=== PATIENT | female | born 1995 | race Caucasian/White ===

== ENCOUNTER 2024-07-07 10:26 | Outpatient (AMB) | payer MEDICAID, SELFPAY ==
[2024-07-07 10:47] VITALS: BP 109/71; PULSE 98; RESP 18; TEMP 36.6; O2SAT 98; BMI 39.4
--- NOTE | 2024-07-07 10:47 | AMB.OBINITIA ---
Vital Signs 07/07/24 10:47 Height 1.5 m Height Method Stated Weight 88.451 kg Weight Measurement Method Standing Scale BMI 39.4 BP 109/71 Blood Pressure Source Automatic Cuff Blood Pressure Location Left Upper Arm Position Sitting Respiration 18 Pulse 98 Pulse Source Monitor Temp 97.8 F Temp Source Oral Pulse Oximetry (%) 98 Oxygen Delivery Method Room Air Allergies/Home Meds Allergies & Medications Allergies No Known Allergies Allergy (Verified 07/07/24 10:48) Medication Reconciliation aspirin 81 mg capsule,delayed release 81 mg PO QDAY 12/11/22 [History Confirmed 07/07/24] vits no.124-ferrous fum 27 mg iron-folic acid 800 mcg tablet ( Vitamin) 1 tab PO QDAY 12/11/22 [History Confirmed 07/07/24] ferrous sulfate 325 mg (65 mg iron) tablet 325 mg PO QDAY #60 tabs 12/14/22 [Rx Confirmed 07/07/24] Intake Visit Data Collection New Patient or Established: Established Patient (seen at [facility] within 3 years) Reason for Visit:: CARE Seen by Clinical Staff ONLY (RN/MA): No Office Clinician Required: No Do You Feel Safe at Home: Yes Authorities Contacted: N/A PCP or OBGYN visit in last 3 months: Yes Hx Now: Yes Are you currently on any form of Control: No Last menstrual period: 05/13/24 Pain Present Currently: No Pain Scale Used: Hinson-Esparza/Numerical Pain scale:: 0 Smoking Status Smoking Status: Never smoker Questionnaires Covid-19 Vaccine Questionnaire Has patient been vacinated for Covid-19 Have you been vacinated for Covid-19: Yes PHQ-9 PHQ-2 Over the last 2 weeks, how often have you been bothered by any of the following problems? 1. Little interest or pleasure in doing things: not at all 2. Feeling down, depressed, or hopeless: not at all Total score: 0 PHQ-9 3. Trouble falling or staying asleep, or sleeping too much: Not at all 4. Feeling tired or having little energy: Not at all 5. Poor appetite or overeating: Not at all 6. Feeling bad about yourself - or that you are a failure or have let yourself or your family down: Not at all 7. Trouble concentrating on things, such as reading the newspaper or watching television: Not at all 8. Moving or speaking so slowly that other people could have noticed? - Or the opposite - being so fidgety or restless that you have been moving around a lot more than usual: not at all 9. Thoughts that you would be better off or of hurting yourself in some way: Not at all Total score: 0 Source: Developed by Drs. Yury Corrales, Aimee Rowley, Satnam Pitts and colleagues, with an educational fili from [employer]. Depression screen completed yes Social History Living Situation History Marital Status: Lives With: Family Housing: House Tobacco History Smoking Status: Never smoker Second Hand Smoke Exposure: No Alcohol History Alcohol Intake: Never Domestic Abuse History Do You Feel Safe at Home: Yes History of Present Illness HPI Narrative 28-year-old 2 para 1 for first OB appointment. Patient's last. May 13, 2024. EDC February 18, 2025. Patient is sure about her dates. She reports her menses is every month x 5 days. Denies social habits. Denies any existing chronic illnesses. No surgeries. Her last was uneventful except for gestational diabetes. And she had a normal on that . Denies any SAB complaints. Denies any first trimester discomforts. 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 no bleeding. lmp 05/13/24. menses q month x 5 days. EDC 02/18/25. happy about . history of GDM last . was uncomplicated. PLAN: OB panel,1hr gtt and A1c, schedule sono for viability, continue PNV, SAB precaution. rtc 4 week Menstrual History Menstrual reliability: definite Flow: normal Menstrual regularity: regular Monthly: Yes Age at menarche: 11 On control pills at conception: No Associated symptoms (LMP): Reports nausea, fatigue and breast tenderness OB History : 2 Para: 1 # of Living Children: 1 Delivery History 1st : Child's name: LISA date: 12/12/22 sex: male Delivery type: vaginal Delivery complications: NONE History of depression before or after : No Infection History & Risk Evaluation History of STDs: none HIV risk evaluation: low risk Hepatitis B risk evaluation: low risk Patient or partner has history of Genital Herpes: No Genetic Screening & History Genetic Screening/Teratology Counseling - Includes patient, baby's father, or anyone in either family with: 1. Patient's age 35 years or older as of estimated date of delivery: No 2. Thalassemia (B[place]an, American, Mediterranean, or Background); MCV less than 80: No 3. Neural Tube Defect (Meningomyelocele, Spina Bifida, or Anencephaly): No 4. Congenital Heart Defect: No 5. Down Syndrome: No 6. Gary-Sachs (Ashkenazi Lutheran, Cajun, Maldivian Bryant): No 7. Karthik Disease (Ashkenazi Lutheran): No 8. Familial Dysautonomia (Ashkenazi Lutheran): No 9. Sickle Cell Disease or Trait (): No 10. Hemophilia or other blood disorders: No 11. Muscular Dystrophy: No 12. Cystic Fibrosis: No 13. [place]'s Chorea: No 14. Mental Retardation/Autism: No 15. Other inherited genetic or chromosomal disorder: No 16. Maternal Metabolic Disorder (EG,TYPE 1 Diabetes, PKU): No 17. Patient or baby's father had a child with defects not listed above: No 18. Recurrent loss or a stillbirth: No 19. Medications (including supplements, vitamins, herbs or otc drugs)/illicit/recreational drugs/alcohol since last menstrual period: No 20. Any other: No Infection History 1. Live with someone with TB or exposed to TB: No 2. Rash or viral illness since last menstrual period: No 3. Hepatitis B,C: No Other (see comments) Source: [employer] Review of Systems Review of Systems Systems Reviewed: All systems reviewed, normal except as documented Constitutional Constitutional: Reports fatigue Gastrointestinal Gastrointestinal: Reports nausea Endocrine Endocrine: Reports fatigue Exam General Limitations: no limitations General Appearance: alert, in no apparent distress, comfortable, cooperative, healthy appearing, well developed and well groomed Head Head exam: atraumatic, normocephalic and normal inspection Chest Chest inspection: Present normal inspection and symmetric chest wall rise Resp Respiratory exam: Present normal lung sounds bilaterally Card Cardiovascular exam: Present regular rate, normal rhythm and normal heart sounds Abdominal Abdominal exam: Present soft and normal bowel sounds Psych Psychiatric exam: Present normal affect and normal mood Office Procedures OB Clinic LOC & Office Proc's Nursing/Assessment Patient Status: Established Patient OB Clinic Nursing Assessment: Medication Reconciliation, Update PMH in EMR and Vital Signs OB Clinic Coordination of Care: Complex Care and Chronic Disease 1-5, Consent,records obtained, informed consent, Education Simp Pt/Fam, Lab and Imaging orders, Results/Orders obtained and Staff clarify orders Special Needs: Heart tones Miscellaneous Interventions: Blood/Urine Collection Established Patient Charge Established Patient Point Assignment: 165 Established Patient Point Charge: EP Level 5 (160-above) Assessment & Plan Diagnosis / Problem List (1) Encounter for supervision of normal in multigravida in first trimester: Status: Acute Plan Continue vitamins. Discussed SAB precautions. Comfort measures for first trimester discomforts. I reviewed GDM diet and encouraged patient to start diet now. OB panel with 1 hour GTT and A1c today. Schedule ultrasound for viability and return in 3 weeks OB check Additional Plan Follow Up: 3 Weeks (obc)
[2024-07-07 12:56] LABS: Bilirubin,Urine Clinitek Negative (Negative); Blood,Urine Clinitek Negative (Negative); Glucose, Urine Clinitek Negative (Negative); Ketones,Urine Clinitek 1+ (Negative); Leukocyte Esterase,Urine Clin Trace (Negative); Nitrite,Urine Clinitek Negative (Negative); Protein,Urine Clinitek Negative (Neg - Trace); Urobilinogen,Urine Clinitek 0.2 mg/dL (0.0-1.0)
== END 2024-07-07 11:22 | disposition home or self-care (01) ==
LOC: HODSOBC 10:26
PROVIDERS: PCP Family Medicine; Referring Provider Family Medicine; Supervising Provider Advanced Practice Midwife; Visit Provider Advanced Practice Midwife
DX: Z34.81 Encounter for supervision of other normal pregnancy, first trimester (principal); Z3A.01 Less than 8 weeks gestation of pregnancy; Z86.32 Personal history of gestational diabetes
CPT/HCPCS: 81001; 99215; G0463

== ENCOUNTER 2024-07-28 09:44 | Outpatient (AMB) | payer MEDICAID, SELFPAY ==
[2024-07-28 10:10] VITALS: BP 109/71; PULSE 88; RESP 16; TEMP 36.8; O2SAT 99; BMI 38.7
--- NOTE | 2024-07-28 10:10 | OBCLNT_ITS ---
Vital Signs 07/28/24 10:10 Height 1.5 m Height Method Stated Weight 86.863 kg Weight Measurement Method Standing Scale BMI 38.7 BP 109/71 Blood Pressure Source Automatic Cuff Blood Pressure Location Right Upper Arm Position Sitting Respiration 16 Pulse 88 Pulse Source Monitor Temp 98.2 F Temp Source Oral Pulse Oximetry (%) 99 Oxygen Delivery Method Room Air Allergies/Home Meds Allergies & Medications Allergies No Known Allergies Allergy (Verified 07/28/24 10:11) Medication Reconciliation aspirin 81 mg capsule,delayed release 81 mg PO QDAY 12/11/22 [History Confirmed 07/28/24] vits no.124-ferrous fum 27 mg iron-folic acid 800 mcg tablet ( Vitamin) 1 tab PO QDAY 12/11/22 [History Confirmed 07/28/24] ferrous sulfate 325 mg (65 mg iron) tablet 325 mg PO QDAY #60 tabs 12/14/22 [Rx Confirmed 07/28/24] Intake Visit Data Collection New Patient or Established: Established Patient (seen at [facility] within 3 years) Reason for Visit:: CARE Seen by Clinical Staff ONLY (RN/MA): No Certified Control Systems Technician Required: No Do You Feel Safe at Home: Yes Authorities Contacted: N/A PCP or OBGYN visit in last 3 months: Yes Hx Now: Yes Are you currently on any form of Control: No Pain Present Currently: No Pain Scale Used: Hinson-Esparza/Numerical Pain scale:: 0 Smoking Status Smoking Status: Never smoker Questionnaires Covid-19 Vaccine Questionnaire Has patient been vacinated for Covid-19 Have you been vacinated for Covid-19: Yes PHQ-9 PHQ-2 Over the last 2 weeks, how often have you been bothered by any of the following problems? 1. Little interest or pleasure in doing things: not at all 2. Feeling down, depressed, or hopeless: not at all Total score: 0 PHQ-9 3. Trouble falling or staying asleep, or sleeping too much: Not at all 4. Feeling tired or having little energy: Not at all 5. Poor appetite or overeating: Not at all 6. Feeling bad about yourself - or that you are a failure or have let yourself or your family down: Not at all 7. Trouble concentrating on things, such as reading the newspaper or watching television: Not at all 8. Moving or speaking so slowly that other people could have noticed? - Or the opposite - being so fidgety or restless that you have been moving around a lot more than usual: not at all 9. Thoughts that you would be better off or of hurting yourself in some way: Not at all Total score: 0 Source: Developed by Drs. Yury Corrales, Aimee Rowley, Satnam Pitts and colleagues, with an educational fili from [employer]. 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 no bleeding. lmp 05/13/24. menses q month x 5 days. EDC 02/18/25. happy about . history of GDM last . was uncomplicated. PLAN: OB panel,1hr gtt and A1c, schedule sono for viability, continue PNV, SAB precaution. rtc 4 week 07/28/24 -?-?-?-?-?-?-?-?-?-?-?-?- 10w 6d 86.863 kg 109/71 absent unknown 10 154 absent increased nausea, no SAB complaints sched anatomy sc an with MFM, NIPT and carrier screen today, sab precaution, increase fluid, RTC 4 wk obc NASRA Calculator Estimated Delivery Date Method Current WG Current Estimate 02/17/25 LMP (Certain) 10w 6d Notes Visit Date: 07/28/24 Last Updated by: Arabella Montes CNM O+,ABS-, RPR::NR, RUB IMM, HBSAG-,HIV-, HC-, GC/CT- Visit Date: 07/07/24 Last Updated by: Arabella Montes CNM 28 yo . LMP 05/13/24. EDC 02/18/25 Office Procedures OB Clinic LOC & Office Proc's Nursing/Assessment Patient Status: Established Patient OB Clinic Nursing Assessment: Medication Reconciliation, Update PMH in EMR and Vital Signs OB Clinic Coordination of Care: Complex Care and Chronic Disease 1-5, Consent,records obtained, informed consent, Education Simp Pt/Fam, Lab and Imaging orders, Results/Orders obtained and Staff clarify orders Special Needs: Heart tones Established Patient Charge Established Patient Point Assignment: 135 Established Patient Point Charge: EP Level 4 (120-155) Assessment & Plan Diagnosis / Problem List (1) Encounter for supervision of normal in multigravida in first trimester: Status: Acute Plan sched M NT and anatomy scan, NIPT and carrier screen today. discuss sab precaution, increase fluid. rtc 4 week Additional Plan Follow Up: 4 Weeks (obc)
== END 2024-07-28 11:18 | disposition home or self-care (01) ==
LOC: HODSOBC 09:44
PROVIDERS: Supervising Provider Obstetrics & Gynecology; Visit Provider Advanced Practice Midwife
DX: Z34.81 Encounter for supervision of other normal pregnancy, first trimester (principal); Z3A.10 10 weeks gestation of pregnancy
CPT/HCPCS: 99214; G0463

== ENCOUNTER 2024-08-30 10:19 | Outpatient (AMB) | payer MEDICAID, SELFPAY ==
[2024-08-30 10:34] VITALS: BP 111/73; PULSE 86; RESP 18; TEMP 36.3; O2SAT 98; BMI 37.8
--- NOTE | 2024-08-30 10:34 | OBCLNT_ITS ---
Vital Signs 08/30/24 10:34 Height 1.5 m Height Method Stated Weight 84.992 kg BMI 37.8 BP 111/73 Blood Pressure Source Automatic Cuff Blood Pressure Location Right Upper Arm Position Sitting Respiration 18 Pulse 86 Pulse Source Monitor Temp 97.3 F Temp Source Oral Pulse Oximetry (%) 98 Oxygen Delivery Method Room Air Allergies/Home Meds Allergies & Medications Allergies No Known Allergies Allergy (Verified 08/30/24 10:35) Medication Reconciliation aspirin 81 mg capsule,delayed release 81 mg PO QDAY 12/11/22 [History Confirmed 08/30/24] vits no.124-ferrous fum 27 mg iron-folic acid 800 mcg tablet ( Vitamin) 1 tab PO QDAY 12/11/22 [History Confirmed 08/30/24] ferrous sulfate 325 mg (65 mg iron) tablet 325 mg PO QDAY #60 tabs 12/14/22 [Rx Confirmed 08/30/24] Intake Visit Data Collection New Patient or Established: Established Patient (seen at [facility] within 3 years) Reason for Visit:: CARE Seen by Clinical Staff ONLY (RN/MA): No 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 1. Little interest or pleasure in doing things: not at all 2. Feeling down, depressed, or hopeless: not at all Total score: 0 PHQ-9 3. Trouble falling or staying asleep, or sleeping too much: Not at all 4. Feeling tired or having little energy: Not at all 5. Poor appetite or overeating: Not at all 6. Feeling bad about yourself - or that you are a failure or have let yourself or your family down: Not at all 7. Trouble concentrating on things, such as reading the newspaper or watching television: Not at all 8. Moving or speaking so slowly that other people could have noticed? - Or the opposite - being so fidgety or restless that you have been moving around a lot more than usual: not at all 9. Thoughts that you would be better off or of hurting yourself in some way: Not at all Total score: 0 Source: Developed by Drs. Yury Corrales, Aimee Rowley, Satnam Pitts and colleagues, with an educational fili from [employer]. 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 no bleeding. lmp 05/13/24. menses q month x 5 days. EDC 02/18/25. happy about . history of GDM last . was uncomplicated. PLAN: OB panel,1hr gtt and A1c, schedule sono for viability, continue PNV, SAB precaution. rtc 4 week 07/28/24 -?-?-?-?-?-?-?-?-?-?-?-?- 10w 6d 86.863 kg 109/71 absent unknown 10 154 absent increased nausea, no SAB complaints sched anatomy sc an with MFM, NIPT and carrier screen today, sab precaution, increase fluid, RTC 4 wk obc 08/30/24 -?-?-?-?-?-?-?-?-?-?-?-?- 15w 4d 84.992 kg 111/73 absent unknown 15 154 active light fm, denies SAB complaints, N/V improved AFP tod emily ferreira on 09/30/24, sab precaution, fluid. rtc 4 week NASRA Calculator Estimated Delivery Date Method Current WG Current Estimate 02/17/25 LMP (Certain) 15w 4d Notes Visit Date: 07/28/24 Last Updated by: Arabella Montes CNM O+,ABS-, RPR::NR, RUB IMM, HBSAG-,HIV-, HC-, GC/CT- Visit Date: 07/07/24 Last Updated by: Arabella Montes CNM 28 yo . LMP 05/13/24. EDC 02/18/25 Office Procedures OB Clinic LOC & Office Proc's Nursing/Assessment Patient Status: Established Patient OB Clinic Nursing Assessment: Medication Reconciliation, Update PMH in EMR and Vital Signs OB Clinic Coordination of Care: Complex Care and Chronic Disease 1-5, Consent,records obtained, informed consent, Education Simp Pt/Fam, Lab and Imaging orders, Results/Orders obtained and Staff clarify orders Special Needs: Heart tones Miscellaneous Interventions: Blood/Urine Collection Established Patient Charge Established Patient Point Assignment: 165 Established Patient Point Charge: EP Level 5 (160-above) Assessment & Plan Diagnosis / Problem List (1) Encounter for supervision of high risk in second trimester, antepartum: Status: Acute Plan AFP today. mfm appointment 09/30/24, discuss sab precaution, hydrate. discuss ER precaution Additional Plan Follow Up: 4 Weeks (obc)
== END 2024-08-30 11:21 | disposition home or self-care (01) ==
LOC: HODSOBC 10:19
PROVIDERS: Supervising Provider Advanced Practice Midwife; Visit Provider Advanced Practice Midwife
DX: O09.92 Supervision of high risk pregnancy, unspecified, second trimester (principal); Z3A.15 15 weeks gestation of pregnancy
CPT/HCPCS: 99215; G0463

== ENCOUNTER 2024-09-27 09:55 | Outpatient (AMB) | payer MEDICAID, SELFPAY ==
--- NOTE | 2024-09-27 10:04 | AMB.OBVISIT ---
Vital Signs 09/27/24 10:05 Height 1.5 m Height Method Stated Weight 85.049 kg Weight Measurement Method Standing Scale BMI 37.8 BP 112/72 Blood Pressure Source Automatic Cuff Blood Pressure Location Right Upper Arm Position Sitting Respiration 17 Pulse 88 Pulse Source Monitor Temp 98.1 F Temp Source Temporal Artery Scan Pulse Oximetry (%) 98 Oxygen Delivery Method Room Air Allergies/Home Meds Allergies & Medications Allergies No Known Allergies Allergy (Verified 09/27/24 10:06) Medication Reconciliation aspirin 81 mg capsule,delayed release 81 mg PO QDAY 12/11/22 [History Confirmed 09/27/24] vits no.124-ferrous fum 27 mg iron-folic acid 800 mcg tablet ( Vitamin) 1 tab PO QDAY 12/11/22 [History Confirmed 09/27/24] ferrous sulfate 325 mg (65 mg iron) tablet 325 mg PO QDAY #60 tabs 12/14/22 [Rx Confirmed 09/27/24] Intake Visit Data Collection New Patient or Established: Established Patient (seen at [facility] within 3 years) Reason for Visit:: OBC 19W4D Seen by Clinical Staff ONLY (RN/MA): No Machine Hoop 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 1. Little interest or pleasure in doing things: not at all 2. Feeling down, depressed, or hopeless: not at all Total score: 0 PHQ-9 3. Trouble falling or staying asleep, or sleeping too much: Not at all 4. Feeling tired or having little energy: Not at all 5. Poor appetite or overeating: Not at all 6. Feeling bad about yourself - or that you are a failure or have let yourself or your family down: Not at all 7. Trouble concentrating on things, such as reading the newspaper or watching television: Not at all 8. Moving or speaking so slowly that other people could have noticed? - Or the opposite - being so fidgety or restless that you have been moving around a lot more than usual: not at all 9. Thoughts that you would be better off or of hurting yourself in some way: Not at all Total score: 0 If you checked off any problems, how difficult have these problems made it for you to do your work, take care of things at home, or get along with other people?: not difficult at all Source: Developed by Drs. Yury Corrales, Aimee Rowley, Satnam Pitts and colleagues, with an educational fili from [employer]. 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 no bleeding. lmp 05/13/24. menses q month x 5 days. EDC 02/18/25. happy about . history of GDM last . was uncomplicated. PLAN: OB panel,1hr gtt and A1c, schedule sono for viability, continue PNV, SAB precaution. rtc 4 week 07/28/24 <del>?</del> 10w 6d 86.863 kg 109/71 absent unknown 10 154 absent increased nausea, no SAB complaints sched anatomy scan with MFM, NIPT and carrier screen today, sab precaution, increase fluid, RTC 4 wk obc 08/30/24 <del>?</del> 15w 4d 84.992 kg 111/73 absent unknown 15 154 active light fm, denies SAB complaints, N/V improved AFP today, mfm on 09/30/24, sab precaution, fluid. rtc 4 week 09/27/24 <del>?</del> 19w 4d 85.049 kg 112/72 absent unknown 19 145 active headache, BP normal. c/u flu s/s, fetus active. no VB,leaking,uc mfm on 09/30, discuss PTL precaution, increase fluid, in crease protein, comfort measure for URI. discuss danger s/s. rtc 4 week NASRA Calculator Estimated Delivery Date Method Current WG Current Estimate 02/17/25 LMP (Certain) 19w 4d Notes Visit Date: 09/27/24 Last Updated by: Arabella Montes CNM 09/27: AFP- Visit Date: 07/28/24 Last Updated by: Arabella Montes CNM O+,ABS-, RPR::NR, RUB IMM, HBSAG-,HIV-, HC-, GC/CT- Visit Date: 07/07/24 Last Updated by: Arabella Montes CNM 28 yo . LMP 05/13/24. EDC 02/18/25 Office Procedures OB Clinic LOC & Office Proc's Nursing/Assessment Patient Status: Established Patient OB Clinic Nursing Assessment: Medication Reconciliation, Update PMH in EMR and Vital Signs OB Clinic Coordination of Care: Complex Care and Chronic Disease 1-5, Consent,records obtained, informed consent, Education Simp Pt/Fam and Staff clarify orders Special Needs: Heart tones Established Patient Charge Established Patient Point Assignment: 115 Established Patient Point Charge: EP Level 3 (80-115) Assessment & Plan Diagnosis / Problem List (1) Encounter for supervision of high risk in second trimester, antepartum: Status: Acute Plan increase fluid, ptl precaution, mfm on 09/30. discuss comfort measure for URI/OTC. rtc 4 week Additional Plan Follow Up: 4 Weeks (obc)
[2024-09-27 10:05] VITALS: BP 112/72; PULSE 88; RESP 17; TEMP 36.7; O2SAT 98; BMI 37.8
== END 2024-09-27 10:44 | disposition home or self-care (01) ==
LOC: HODSOBC 09:55
PROVIDERS: Supervising Provider Advanced Practice Midwife; Visit Provider Advanced Practice Midwife
DX: O09.92 Supervision of high risk pregnancy, unspecified, second trimester (principal); Z3A.19 19 weeks gestation of pregnancy
CPT/HCPCS: 99213; G0463

== ENCOUNTER 2024-10-25 14:26 | Outpatient (AMB) | payer MEDICAID, SELFPAY ==
[2024-10-25 14:32] VITALS: BP 117/73; PULSE 91; RESP 18; TEMP 36.6; O2SAT 98; BMI 37.8
--- NOTE | 2024-10-25 14:32 | OBCLNT_ITS ---
Vital Signs 10/25/24 14:32 Height 1.5 m Height Method Stated Weight 85.275 kg Weight Measurement Method Standing Scale BMI 37.8 BP 117/73 Blood Pressure Source Automatic Cuff Blood Pressure Location Left Upper Arm Position Sitting Respiration 18 Pulse 91 Pulse Source Monitor Temp 97.8 F Temp Source Oral Pulse Oximetry (%) 98 Oxygen Delivery Method Room Air Allergies/Home Meds Allergies & Medications Allergies No Known Allergies Allergy (Verified 10/25/24 14:38) Medication Reconciliation aspirin 81 mg capsule,delayed release 81 mg PO QDAY 12/11/22 [History Confirmed 10/25/24] vits no.124-ferrous fum 27 mg iron-folic acid 800 mcg tablet ( Vitamin) 1 tab PO QDAY 12/11/22 [History Confirmed 10/25/24] ferrous sulfate 325 mg (65 mg iron) tablet 325 mg PO QDAY #60 tabs 12/14/22 [Rx Confirmed 10/25/24] Intake Visit Data Collection New Patient or Established: Established Patient (seen at [facility] [place] within 3 years) Reason for Visit:: CARE Seen by Clinical Staff ONLY (RN/MA): No 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 1. Little interest or pleasure in doing things: not at all 2. Feeling down, depressed, or hopeless: not at all Total score: 0 PHQ-9 3. Trouble falling or staying asleep, or sleeping too much: Not at all 4. Feeling tired or having little energy: Not at all 5. Poor appetite or overeating: Not at all 6. Feeling bad about yourself - or that you are a failure or have let yourself or your family down: Not at all 7. Trouble concentrating on things, such as reading the newspaper or watching television: Not at all 8. Moving or speaking so slowly that other people could have noticed? - Or the opposite - being so fidgety or restless that you have been moving around a lot more than usual: not at all 9. Thoughts that you would be better off or of hurting yourself in some way: Not at all Total score: 0 Source: Developed by Drs. Yury Corrales, Aimee Rowley, Satnam Pitts and colleagues, with an educational fili from [employer]. Depression screen completed yes Social History Living Situation History Lives With: Family Housing: House Tobacco History Smoking Status: Never smoker Second Hand Smoke Exposure: No Alcohol History Alcohol Intake: Never Domestic Abuse History Do You Feel Safe at Home: Yes [employer] WORKERS: Past Medical History Past Medical History: No Hx Renal Disease, No Hx Diabetes Mellitus Type 1 and No Hx Diabetes Mellitus Type 2 Care OB Visit Log OB Flowsheet Initial Weight: Not Recorded Date -?-?-?-?-?-?-?-?-?-?-?-?- EGA Weight BP Alb Glu CTX Pres Fundal ht FHR Mov Dilation Station Effacement Hx Notes Visit Note 07/07/24 -?-?-?-?-?-?-?-?-?-?-?-?- 7w 6d 88.451 kg 109/71 absent 8.0 28 yo for OBI, denies sab complaints, no complaint of N/v. no bleeding. lmp 05/13/24. menses q month x 5 days. EDC 02/18/25. happy about . history of GDM last . was uncomplicated. PLAN: OB panel,1hr gtt and A1c, schedule sono for viability, continue PNV, SAB precaution. rtc 4 week 07/28/24 -?-?-?-?-?-?-?-?-?-?-?-?- 10w 6d 86.863 kg 109/71 absent unknown 10 154 absent increased nausea, no SAB complaints sched anatomy sc an with MFM, NIPT and carrier screen today, sab precaution, increase fluid, RTC 4 wk obc 08/30/24 -?-?-?-?-?-?-?-?-?-?-?-?- 15w 4d 84.992 kg 111/73 absent unknown 15 154 active light fm, denies SAB complaints, N/V improved AFP tod ay, mfm on 09/30/24, sab precaution, fluid. rtc 4 week 09/27/24 -?-?-?-?-?-?-?-?-?-?-?-?- 19w 4d 85.049 kg 112/72 absent unknown 19 145 active headache, BP normal. c/u flu s/s, fetus active. no VB,leaking,uc mfm on 09/30, discuss PTL precaution, increase fluid, in crease protein, comfort measure for URI. discuss danger s/s. rtc 4 week 10/25/24 -?-?-?-?-?-?-?-?-?-?-?-?- 23w 4d 85.275 kg 117/73 absent unknown 23 145 active Fetus active. C omplains of vaginal itching a week ago but nothing now. Normal discharge is normal. Reports movement. Denies leaking, bleeding, contractions. Patient has a follow-up ultrasound November 23 with MFM. No other complaints Third trimester labs were ordered. Keep appointment with MFM on the first. Discussed labor precautions. Increase fluids. I discussed diet and diet. Return in 4 weeks OB check NASRA Calculator Estimated Delivery Date Method Current WG Current Estimate 02/17/25 LMP (Certain) 23w 4d Other Estimates 02/17/25 Ultrasound #1 23w 4d Notes Visit Date: 10/25/24 Last Updated by: Arabella Montes CNM NIPT/carier screen- Visit Date: 09/27/24 Last Updated by: Arabella Montes CNM 09/27: AFP- Visit Date: 07/28/24 Last Updated by: Arabella Montes CNM O+,ABS-, RPR::NR, RUB IMM, HBSAG-,HIV-, HC-, GC/CT- Visit Date: 07/07/24 Last Updated by: Arabella Montes CNM 28 yo . LMP 05/13/24. EDC 02/18/25 Office Procedures OB Clinic LOC & Office Proc's Nursing/Assessment Patient Status: Established Patient OB Clinic Nursing Assessment: Medication Reconciliation, Update PMH in EMR and Vital Signs OB Clinic Coordination of Care: Complex Care and Chronic Disease 1-5, Consent,records obtained, informed consent, Education Simp Pt/Fam, Lab and Imaging orders, Results/Orders obtained and Staff clarify orders Special Needs: Heart tones Miscellaneous Interventions: Culture Specimen Collection Established Patient Charge Established Patient Point Assignment: 150 Established Patient Point Charge: EP Level 4 (120-155) Assessment & Plan Diagnosis / Problem List (1) Encounter for supervision of high risk in second trimester, antepartum: Status: Acute Plan Discussed NIPT. Keep MFM appointment November 23. Third trimester labs ordered. Discussed diet and weight. Increase fluids. Return in 4 weeks OB check Additional Plan Follow Up: 4 Weeks (obc)
== END 2024-10-25 15:12 | disposition home or self-care (01) ==
LOC: HODSOBC 14:26
PROVIDERS: Supervising Provider Advanced Practice Midwife; Visit Provider Advanced Practice Midwife
DX: O09.92 Supervision of high risk pregnancy, unspecified, second trimester (principal); Z3A.23 23 weeks gestation of pregnancy
CPT/HCPCS: 99214; G0463

== ENCOUNTER 2024-11-22 09:49 | Outpatient (AMB) | payer MEDICAID, SELFPAY ==
[2024-11-22 09:57] VITALS: BP 107/71; PULSE 90; RESP 16; TEMP 36.2; O2SAT 98; BMI 38.1
--- NOTE | 2024-11-22 09:57 | AMB.OBVISIT ---
Vital Signs 11/22/24 09:57 Height 1.5 m Height Method Stated Weight 85.786 kg Weight Measurement Method Standing Scale BMI 38.1 BP 107/71 Blood Pressure Source Automatic Cuff Blood Pressure Location Left Upper Arm Position Sitting Respiration 16 Pulse 90 Pulse Source Monitor Temp 97.2 F Temp Source Oral Pulse Oximetry (%) 98 Oxygen Delivery Method Room Air Allergies/Home Meds Allergies & Medications Allergies No Known Allergies Allergy (Verified 11/22/24 09:59) Medication Reconciliation aspirin 81 mg capsule,delayed release 81 mg PO QDAY 12/11/22 [History Confirmed 11/22/24] vits no.124-ferrous fum 27 mg iron-folic acid 800 mcg tablet ( Vitamin) 1 tab PO QDAY 12/11/22 [History Confirmed 11/22/24] ferrous sulfate 325 mg (65 mg iron) tablet 325 mg PO QDAY #60 tabs 12/14/22 [Rx Confirmed 11/22/24] blood sugar diagnostic (Blood Glucose Test strips) #50 ea 11/22/24 [Rx] blood-glucose meter #1 ea 11/22/24 [Rx] lancets #100 ea 11/22/24 [Rx] Intake Visit Data Collection New Patient or Established: Established Patient (seen at [facility] within 3 years) Reason for Visit:: OBC Seen by Clinical Staff ONLY (RN/MA): No Pricing Specialist Required: No Do You Feel Safe at Home: Yes Authorities Contacted: N/A PCP or OBGYN visit in last 3 months: Yes Date of Last PCP or OBGYN visit: 10/25/24 Hx Now: Yes Are you currently on any form of Control: No Pain Present Currently: No Pain Scale Used: Hinson-Esparza/Numerical Pain scale:: 0 Smoking Status Smoking Status: Never smoker Questionnaires Covid-19 Vaccine Questionnaire Has patient been vacinated for Covid-19 Have you been vacinated for Covid-19: Yes PHQ-9 PHQ-2 Over the last 2 weeks, how often have you been bothered by any of the following problems? 1. Little interest or pleasure in doing things: not at all 2. Feeling down, depressed, or hopeless: not at all Total score: 0 PHQ-9 3. Trouble falling or staying asleep, or sleeping too much: Not at all 4. Feeling tired or having little energy: Not at all 5. Poor appetite or overeating: Not at all 6. Feeling bad about yourself - or that you are a failure or have let yourself or your family down: Not at all 7. Trouble concentrating on things, such as reading the newspaper or watching television: Not at all 8. Moving or speaking so slowly that other people could have noticed? - Or the opposite - being so fidgety or restless that you have been moving around a lot more than usual: not at all 9. Thoughts that you would be better off or of hurting yourself in some way: Not at all Total score: 0 If you checked off any problems, how difficult have these problems made it for you to do your work, take care of things at home, or get along with other people?: not difficult at all Source: Developed by Drs. Yury Corrales, Aimee Rowley, Satnam Pitts and colleagues, with an educational fili from [employer]. Depression screen completed yes Social History Living Situation History Marital Status: Single Lives With: Family Housing: House Tobacco History Smoking Status: Never smoker Second Hand Smoke Exposure: No Alcohol History Alcohol Intake: Never Domestic Abuse History Do You Feel Safe at Home: Yes [employer]SEM[employer]ER [employer]QUIPMENT: Past Medical History Past Medical History: No Hx Renal Disease, No Hx Diabetes Mellitus Type 1 and No Hx Diabetes Mellitus Type 2 Care OB Visit Log OB Flowsheet Initial Weight: Not Recorded Date <del>?</del> EGA Weight BP Alb Glu CTX Pres Fundal ht FHR Mov Dilation Station Effacement Hx Notes Visit Note 07/07/24 <del>?</del> 7w 6d 88.451 kg 109/71 absent 8.0 28 yo for OBI, denies sab complaints, no complaint of N/v. no bleeding. lmp 05/13/24. menses q month x 5 days. EDC 02/18/25. happy about . history of GDM last . was uncomplicated. PLAN: OB panel,1hr gtt and A1c, schedule sono for viability, continue PNV, SAB precaution. rtc 4 week 07/28/24 <del>?</del> 10w 6d 86.863 kg 109/71 absent unknown 10 154 absent increased nausea, no SAB complaints sched anatomy scan with MFM, NIPT and carrier screen today, sab precaution, increase fluid, RTC 4 wk obc 08/30/24 <del>?</del> 15w 4d 84.992 kg 111/73 absent unknown 15 154 active light fm, denies SAB complaints, N/V improved AFP today, mfm on 09/30/24, sab precaution, fluid. rtc 4 week 09/27/24 <del>?</del> 19w 4d 85.049 kg 112/72 absent unknown 19 145 active headache, BP normal. c/u flu s/s, fetus active. no VB,leaking,uc mfm on 09/30, discuss PTL precaution, increase fluid, in crease protein, comfort measure for URI. discuss danger s/s. rtc 4 week 10/25/24 <del>?</del> 23w 4d 85.275 kg 117/73 absent unknown 23 145 active Fetus active. Complains of vaginal itching a week ago but nothing now. Normal discharge is normal. Reports movement. Denies leaking, bleeding, contractions. Patient has a follow-up ultrasound November 23 with [facility]. No other complaints Third trimester labs were ordered. Keep appointment with [facility] on the first. Discussed labor precautions. Increase fluids. I discussed diet and diet. Return in 4 weeks OB check 11/22/24 <del>?</del> 27w 4d 85.786 kg 107/71 absent unknown 27 145 active Fetus active. Denies contractions, leaking, bleeding. Patient has an appointment with [facility] November 23 Keep appointment with [facility] November 23. Discussed GDM diet. Patient to test 4 times a day. I ordered meter and lancets and test strips. Antepartum testing at 32 weeks. Patient had GDM at her last so she remembers how to monitor and log sugars and remembers diet. Discussed labor precautions. Return in 3 weeks for Tdap and OB check NASRA Calculator Estimated Delivery Date Method Current WG Current Estimate 02/17/25 LMP (Certain) 27w 4d Other Estimates 02/17/25 Ultrasound #1 27w 4d Notes Visit Date: 11/22/24 Last Updated by: Arabella Montes CNM 11/22: 1 hr gtt: 199/GDM. rpr:nr, A1: 5.4 Visit Date: 10/25/24 Last Updated by: Arabella Montes CNM NIPT/carier screen- Visit Date: 09/27/24 Last Updated by: Arabella Montes CNM 8/5: AFP- Visit Date: 07/28/24 Last Updated by: Arabella Montes CNM O+,ABS-, RPR::NR, RUB IMM, HBSAG-,HIV-, HC-, GC/CT- Visit Date: 07/07/24 Last Updated by: Arabella Montes CNM 28 yo . LMP 05/13/24. EDC 02/18/25 Office Procedures OBC Clinic LOC & Office Proc's Nursing/Assessment Patient Status: Established Patient OB Clinic Nursing Assessment: Medication Reconciliation, Update PMH in EMR and Vital Signs OB Clinic Coordination of Care: Education Complex Pt/Fam, Consent,records obtained, informed consent, Lab and Imaging orders, Results/Orders obtained and Staff clarify orders Special Needs: Heart tones Established Patient Charge Established Patient Point Assignment: 115 Established Patient Point Charge: EP Level 3 (80-115) Assessment & Plan Diagnosis / Problem List (1) Diet controlled gestational diabetes mellitus (GDM) in second trimester: Status: Acute (2) Encounter for supervision of high risk in second trimester, antepartum: Status: Acute Plan Ordered glucometer, lancets, test strips to [facility]. Reviewed GDM diet with patient. Walk 40 minutes a day. Discussed testing 4 times a day. Discussed labor precautions. Return in 3 weeks Tdap and OB check Additional Plan Follow Up: 3 Weeks (obc)
== END 2024-11-22 10:26 | disposition home or self-care (01) ==
LOC: HODSOBC 09:49
PROVIDERS: Supervising Provider Advanced Practice Midwife; Visit Provider Advanced Practice Midwife
DX: O09.892 Supervision of other high risk pregnancies, second trimester (principal); O24.410 Gestational diabetes mellitus in pregnancy, diet controlled; Z3A.27 27 weeks gestation of pregnancy
CPT/HCPCS: 99213; G0463

== ENCOUNTER 2024-12-13 11:25 | Outpatient (AMB) | payer MEDICAID, SELFPAY ==
[2024-12-13 11:35] VITALS: BP 110/71; PULSE 85; RESP 18; TEMP 36.3; O2SAT 98; BMI 38.1
--- NOTE | 2024-12-13 11:35 | OBCLNT_ITS ---
Vital Signs 12/13/24 11:35 Height 1.5 m Height Method Stated Weight 85.899 kg Weight Measurement Method Standing Scale BMI 38.1 BP 110/71 Blood Pressure Source Automatic Cuff Blood Pressure Location Right Upper Arm Position Sitting Respiration 18 Pulse 85 Pulse Source Monitor Temp 97.3 F Temp Source Temporal Artery Scan Pulse Oximetry (%) 98 Oxygen Delivery Method Room Air Allergies/Home Meds Allergies & Medications Allergies No Known Allergies Allergy (Verified 12/13/24 11:39) Medication Reconciliation aspirin 81 mg capsule,delayed release 81 mg PO QDAY 12/11/22 [History Confirmed 12/13/24] vits no.124-ferrous fum 27 mg iron-folic acid 800 mcg tablet ( Vitamin) 1 tab PO QDAY 12/11/22 [History Confirmed 12/13/24] ferrous sulfate 325 mg (65 mg iron) tablet 325 mg PO QDAY #60 tabs 12/14/22 [Rx Confirmed 12/13/24] blood sugar diagnostic (Blood Glucose Test strips) #50 ea 11/22/24 [Rx Confirmed 12/13/24] blood-glucose meter #1 ea 11/22/24 [Rx Confirmed 12/13/24] lancets #100 ea 11/22/24 [Rx Confirmed 12/13/24] Intake Visit Data Collection New Patient or Established: Established Patient (seen at [facility] within 3 years) Reason for Visit:: OBC Seen by Clinical Staff ONLY (RN/MA): No Director Pharmaceutical Required: No Do You Feel Safe at Home: Yes Authorities Contacted: N/A PCP or OBGYN visit in last 3 months: No Hx Now: Yes Are you currently on any form of Control: No Pain Present Currently: No Pain Scale Used: Hinson-Esparza/Numerical Pain scale:: 0 Smoking Status Smoking Status: Never smoker Immunizations Flu Vaccine in the Last 12 Months: No Questionnaires Covid-19 Vaccine Questionnaire Has patient been vacinated for Covid-19 Have you been vacinated for Covid-19: No PHQ-9 PHQ-2 Over the last 2 weeks, how often have you been bothered by any of the following problems? 1. Little interest or pleasure in doing things: not at all 2. Feeling down, depressed, or hopeless: not at all Total score: 0 PHQ-9 3. Trouble falling or staying asleep, or sleeping too much: Not at all 4. Feeling tired or having little energy: Not at all 5. Poor appetite or overeating: Not at all 6. Feeling bad about yourself - or that you are a failure or have let yourself or your family down: Not at all 7. Trouble concentrating on things, such as reading the newspaper or watching television: Not at all 8. Moving or speaking so slowly that other people could have noticed? - Or the opposite - being so fidgety or restless that you have been moving around a lot more than usual: not at all 9. Thoughts that you would be better off or of hurting yourself in some way: Not at all Total score: 0 If you checked off any problems, how difficult have these problems made it for you to do your work, take care of things at home, or get along with other people?: not difficult at all Source: Developed by Drs. Yury Corrales, Aimee Rowley, Satnam Pitts and colleagues, with an educational flii from [employer]. 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 no bleeding. lmp 05/13/24. menses q month x 5 days. EDC 02/18/25. happy about . history of GDM last . was uncomplicated. PLAN: OB panel,1hr gtt and A1c, schedule sono for viability, continue PNV, SAB precaution. rtc 4 week 07/28/24 -?-?-?-?-?-?-?-?-?-?-?-?- 10w 6d 86.863 kg 109/71 absent unknown 10 154 absent increased nausea, no SAB complaints sched anatomy sc an with MFM, NIPT and carrier screen today, sab precaution, increase fluid, RTC 4 wk obc 08/30/24 -?-?-?-?-?-?-?-?-?-?-?-?- 15w 4d 84.992 kg 111/73 absent unknown 15 154 active light fm, denies SAB complaints, N/V improved AFP tod ay, mfm on 09/30/24, sab precaution, fluid. rtc 4 week 09/27/24 -?-?-?-?-?-?-?-?-?-?-?-?- 19w 4d 85.049 kg 112/72 absent unknown 19 145 active headache, BP normal. c/u flu s/s, fetus active. no VB,leaking,uc mfm on 09/30, discuss PTL precaution, increase fluid, in crease protein, comfort measure for URI. discuss danger s/s. rtc 4 week 10/25/24 -?-?-?-?-?-?-?-?-?-?-?-?- 23w 4d 85.275 kg 117/73 absent unknown 23 145 active Fetus active. Complains of vaginal itching a week ago but nothing now. Normal discharge is normal. Reports movement. Denies leaking, bleeding, contractions. Patient has a follow-up ultrasound November 23 with [facility]. No other complaints Third trimester labs were ordered. Keep appointment with [facility] on the first. Discussed labor precautions. Increase fluids. I discussed diet and diet. Return in 4 weeks OB check 11/22/24 -?-?-?-?-?-?-?-?-?-?-?-?- 27w 4d 85.786 kg 107/71 absent unknown 27 145 active Fetus active. Denies contractions, leaking, bleeding. Patient has an appointment with [facility] November 23 Keep appointment with [facility] November 23. Discussed GDM diet. Patient to test 4 times a day. I ordered meter and lancets and test strips. Antepartum testing at 32 weeks. Patient had GDM at her last so she remembers how to monitor and log sugars and remembers diet. Discussed labor precautions. Return in 3 weeks for Tdap and OB check 12/13/24 -?-?-?-?-?-?-?-?-?-?-?-?- 30w 4d 85.899 kg 110/71 absent unknown 30 145 active Fetus active. Denies leaking, bleeding, contractions. Patient reports good compliance with diet. She states her sugars are at goal at least 95% of the time. Fastings being under 90. tdap today. Carlos edule NST BPP to start at 32 weeks. Patient has a follow-up [facility] December 28. Discussed labor precautions. Continue to monitor sugars 4 times a day. And continue GDM diet. Return in 2 weeks OB NASRA Calculator Estimated Delivery Date Method Current WG Current Estimate 02/17/25 LMP (Certain) 30w 4d Other Estimates 02/17/25 Ultrasound #1 30w 4d Notes Visit Date: 11/22/24 Last Updated by: Arabella Montes CNM 11/22: 1 hr gtt: 199/GDM. rpr:nr, A1: 5.4 Visit Date: 10/25/24 Last Updated by: Arabella Montes CNM NIPT/carier screen- Visit Date: 09/27/24 Last Updated by: Arabella Montes CNM 09/27: AFP- Visit Date: 07/28/24 Last Updated by: Arabella Montes CNM O+,ABS-, RPR::NR, RUB IMM, HBSAG-,HIV-, HC-, GC/CT- Visit Date: 07/07/24 Last Updated by: Arabella Montes CNM 28 yo . LMP 05/13/24. EDC 02/18/25 Office Procedures OBC Clinic LOC & Office Proc's Nursing/Assessment Patient Status: Established Patient OB Clinic Nursing Assessment: Medication Reconciliation, Update PMH in EMR and Vital Signs OB Clinic Coordination of Care: Complex Care and Chronic Disease 1-5, Education Complex Pt/Fam, Consent,records obtained, informed consent, Lab and Imaging orders, Results/Orders obtained and Staff clarify orders Special Needs: Heart tones Established Patient Charge Established Patient Point Assignment: 140 Established Patient Point Charge: EP Level 4 (120-155) Injection/Vaccine Admin SQ Im Injection: Yes Immunizations diphth,pertus(acell),tetanus 2.5 Lf unit-8 mcg-5 Lf/0.5mL IM syringe Performing Provider: Arabella Montes CNM Performing Location: [facility] Administered by: Pati Palma MA on 12/13/24 12:09 Dose Route Admin Location Dispensed Lot Number Expiration Date Pack age NDC NDC Silk Spotter 0.5 mL IM Left Deltoid 0.5 mL [id number] 01/20/27 [id number] [employer] VIS Given Date VIS Provided VIS Publication Date 12/13/24 Single Vaccine 24 Eligibility Eligibility Date Funding Source Public Non-[facility] Assessment & Plan Diagnosis / Problem List (1) Encounter for supervision of high risk in second trimester, antepartum: Status: Acute (2) Diet controlled gestational diabetes mellitus (GDM) in second trimester: Status: Acute Plan Schedule weekly NST BPP. Discussed labor precautions and kick count. Patient will start NST at 32 weeks. Continue GDM diet. Walk 40 minutes a day. Will continue monitoring blood sugars 4 times a day. Return in 2 weeks OB check patient has a follow-up MFM appointment December Additional Plan Follow Up: 2 Weeks (obc)
== END 2024-12-13 12:00 | disposition home or self-care (01) ==
LOC: HODSOBC 11:25
PROVIDERS: Supervising Provider Advanced Practice Midwife; Visit Provider Advanced Practice Midwife
DX: O09.893 Supervision of other high risk pregnancies, third trimester (principal); O24.410 Gestational diabetes mellitus in pregnancy, diet controlled; Z3A.30 30 weeks gestation of pregnancy; Z23 Encounter for immunization
CPT/HCPCS: 90471; 90715; 96372; 99214; G0463

== ENCOUNTER 2024-12-27 12:53 | Outpatient (AMB) | payer MEDICAID, SELFPAY ==
[2024-12-27 12:55] VITALS: BP 106/67; PULSE 85; RESP 16; TEMP 36.6; O2SAT 98; BMI 38.3
--- NOTE | 2024-12-27 12:55 | OBCLNT_ITS ---
Vital Signs 12/27/24 12:55 Height 1.5 m Height Method Stated Weight 86.296 kg Weight Measurement Method Standing Scale BMI 38.3 BP 106/67 Blood Pressure Source Automatic Cuff Blood Pressure Location Left Upper Arm Position Sitting Respiration 16 Pulse 85 Pulse Source Monitor Temp 97.8 F Temp Source Oral Pulse Oximetry (%) 98 Oxygen Delivery Method Room Air Allergies/Home Meds Allergies & Medications Allergies No Known Allergies Allergy (Verified 12/27/24 13:02) Medication Reconciliation aspirin 81 mg capsule,delayed release 81 mg PO QDAY 12/11/22 [History Confirmed 12/27/24] vits no.124-ferrous fum 27 mg iron-folic acid 800 mcg tablet ( Vitamin) 1 tab PO QDAY 12/11/22 [History Confirmed 12/27/24] ferrous sulfate 325 mg (65 mg iron) tablet 325 mg PO QDAY #60 tabs 12/14/22 [Rx Confirmed 12/27/24] blood sugar diagnostic (Blood Glucose Test strips) #50 ea 11/22/24 [Rx Confirmed 12/27/24] blood-glucose meter #1 ea 11/22/24 [Rx Confirmed 12/27/24] lancets #100 ea 11/22/24 [Rx Confirmed 12/27/24] Intake Visit Data Collection New Patient or Established: Established Patient (seen at [facility] within 3 years) Reason for Visit:: care Seen by Clinical Staff ONLY (RN/MA): No Store Leader Required: No Do You Feel Safe at Home: Yes Authorities Contacted: N/A PCP or OBGYN visit in last 3 months: Yes Hx Now: Yes Are you currently on any form of Control: No Pain Present Currently: No Pain Scale Used: Hinson-Esparza/Numerical Pain scale:: 0 Smoking Status Smoking Status: Never smoker Immunizations Flu Vaccine in the Last 12 Months: Yes Flu Vaccine Exclusion Criteria: Already Received Questionnaires Covid-19 Vaccine Questionnaire Has patient been vacinated for Covid-19 Have you been vacinated for Covid-19: Yes PHQ-9 PHQ-2 Over the last 2 weeks, how often have you been bothered by any of the following problems? 1. Little interest or pleasure in doing things: not at all 2. Feeling down, depressed, or hopeless: not at all Total score: 0 PHQ-9 3. Trouble falling or staying asleep, or sleeping too much: Not at all 4. Feeling tired or having little energy: Not at all 5. Poor appetite or overeating: Not at all 6. Feeling bad about yourself - or that you are a failure or have let yourself or your family down: Not at all 7. Trouble concentrating on things, such as reading the newspaper or watching television: Not at all 8. Moving or speaking so slowly that other people could have noticed? - Or the opposite - being so fidgety or restless that you have been moving around a lot more than usual: not at all 9. Thoughts that you would be better off or of hurting yourself in some way: Not at all Total score: 0 Source: Developed by Drs. Yury Corrales, Aimee Rowley, Satnam Pitts and colleagues, with an educational fili from [employer]. Depression screen completed yes Social History Living Situation History Lives With: Family Housing: House Tobacco History Smoking Status: Never smoker Second Hand Smoke Exposure: No Alcohol History Alcohol Intake: Never Domestic Abuse History Do You Feel Safe at Home: Yes [employer] STE[employer]ER [employer]ENDER: Past Medical History Past Medical History: No Hx Renal Disease, No Hx Diabetes Mellitus Type 1 and No Hx Diabetes Mellitus Type 2 Care OB Visit Log OB Flowsheet Initial Weight: Not Recorded Date -?-?-?-?-?-?-?-?-?-?-?-?- EGA Weight BP Alb Glu CTX Pres Fundal ht FHR Mov Dilation Station Effaceme nt Hx Notes Visit Note 07/07/24 -?-?-?-?-?-?-?-?-?-?-?-?- 7w 6d 88.451 kg 109/71 absent 8.0 28 yo for OBI, denies sab complaints, no complaint of N/v. no bleeding. lmp 05/13/24. menses q month x 5 days. EDC 02/18/25. happy about . history of GDM last . was uncomplicated. PLAN: OB panel,1hr gtt and A1c, schedule sono for viability, continue PNV, SAB precaution. rtc 4 week 07/28/24 -?-?-?-?-?-?-?-?-?-?-?-?- 10w 6d 86.863 kg 109/71 absent unknown 10 154 absent increased nausea, no SAB complaints sched anatomy sc an with MFM, NIPT and carrier screen today, sab precaution, increase fluid, RTC 4 wk obc 08/30/24 -?-?-?-?-?-?-?-?-?-?-?-?- 15w 4d 84.992 kg 111/73 absent unknown 15 154 active light fm, denies SAB complaints, N/V improved AFP tod ay, mfm on 09/30/24, sab precaution, fluid. rtc 4 week 09/27/24 -?-?-?-?-?-?-?-?-?-?-?-?- 19w 4d 85.049 kg 112/72 absent unknown 19 145 active headache, BP normal. c/u flu s/s, fetus active. no VB,leaking,uc mfm on 09/30, discuss PTL precaution, increase fluid, in crease protein, comfort measure for URI. discuss danger s/s. rtc 4 week 10/25/24 -?-?-?-?-?-?-?-?-?-?-?-?- 23w 4d 85.275 kg 117/73 absent unknown 23 145 active Fetus active. Complains of vaginal itching a week ago but nothing now. Normal discharge is normal. Reports movement. Denies leaking, bleeding, contractions. Patient has a follow-up ultrasound November 23 with [facility]. No other complaints Third trimester labs were ordered. Keep appointment with [facility] on the first. Discussed labor precautions. Increase fluids. I discussed diet and diet. Return in 4 weeks OB check 11/22/24 -?-?-?-?-?-?-?-?-?-?-?-?- 27w 4d 85.786 kg 107/71 absent unknown 27 145 active Fetus active. Denies contractions, leaking, bleeding. Patient has an appointment with [facility] November 23 Keep appointment with [facility] November 23. Discussed GDM diet. Patient to test 4 times a day. I ordered meter and lancets and test strips. Antepartum testing at 32 weeks. Patient had GDM at her last so she remembers how to monitor and log sugars and remembers diet. Discussed labor precautions. Return in 3 weeks for Tdap and OB check 12/13/24 -?-?-?-?-?-?-?-?-?-?-?-?- 30w 4d 85.899 kg 110/71 absent unknown 30 145 active Fetus active. Denies leaking, bleeding, contractions. Patient reports good compliance with diet. She states her sugars are at goal at least 95% of the time. Fastings being under 90. tdap today. [facility] roshan NST BPP to start at 32 weeks. Patient has a follow-up MFM December 28. Discussed labor precautions. Continue to monitor sugars 4 times a day. And continue GDM diet. Return in 2 weeks OB 12/27/24 -?-?-?-?-?-?-?-?-?-?-?-?- 32w 4d 86.296 kg 106/67 absent unknown 32 146 active Fetus active. Denies leaking, bleeding, contractions. Patient has been compliant with GDM diet. And also monitoring 4 times a day her blood sugars. Sugars have been at goal 95% of the time. She will start weekly NST BPP today Follow-up with MFM for growth scan in a couple weeks. Continue to monitor blood sugars 4 times a day. Continue with regular activity throughout the day. And start NST BPP weekly. Kick count twice a day and return in 2 weeks OB check NASRA Calculator Estimated Delivery Date Method Current WG Current Estimate 02/17/25 LMP (Certain) 32w 4d Other Estimates 02/17/25 Ultrasound #1 32w 4d 02/17/25 Ultrasound #2 32w 4d 02/17/25 Manual 32w 4d final nasra: 01/24 08/17, EFW: 16% Notes Visit Date: 11/22/24 Last Updated by: Arabella Montes CNM 11/22: 1 hr gtt: 199/GDM. rpr:nr, A1: 5.4 Visit Date: 10/25/24 Last Updated by: Arabella Montes CNM NIPT/carier screen- Visit Date: 09/27/24 Last Updated by: Arabella Montes CNM 09/27: AFP- Visit Date: 07/28/24 Last Updated by: Arabella Montes CNM O+,ABS-, RPR::NR, RUB IMM, HBSAG-,HIV-, HC-, GC/CT- Visit Date: 07/07/24 Last Updated by: Arabella Montes CNM 28 yo . LMP 05/13/24. EDC 02/18/25 Office Procedures OBC Clinic LOC & Office Proc's Nursing/Assessment Patient Status: Established Patient OB Clinic Nursing Assessment: Medication Reconciliation, Update PMH in EMR and Vital Signs OB Clinic Coordination of Care: Complex Care and Chronic Disease 1-5, Consent,records obtained, informed consent, Education Simp Pt/Fam, 1 Ins Authorization, Lab and Imaging orders, Results/Orders obtained and Staff clarify orders Special Needs: Heart tones Established Patient Charge Established Patient Point Assignment: 150 Established Patient Point Charge: EP Level 4 (120-155) Assessment & Plan Diagnosis / Problem List (1) Encounter for supervision of high risk in third trimester, antepartum: Status: Acute Plan Continue to monitor glucoses 4 times a day. Continue GDM diet. Walk 40 minutes a day. 10 minutes after each meal. Continue weekly NST BPP and patient has a follow-up with MFM next month for growth. Return in 2 weeks OB check Additional Plan Follow Up: 2 Weeks (obc)
== END 2024-12-27 13:18 | disposition home or self-care (01) ==
LOC: HODSOBC 12:53
PROVIDERS: Supervising Provider Advanced Practice Midwife; Visit Provider Advanced Practice Midwife
DX: O09.893 Supervision of other high risk pregnancies, third trimester (principal); O24.410 Gestational diabetes mellitus in pregnancy, diet controlled; Z3A.32 32 weeks gestation of pregnancy
CPT/HCPCS: 99214; G0463

== ENCOUNTER 2025-01-11 13:03 | Outpatient (CLI) | payer MEDICAID, SELFPAY ==
[2025-01-11 13:08] VITALS: BP 129/75; PULSE 111; RESP 16; TEMP 36.7; O2SAT 98
[2025-01-11 13:14] VITALS: BP 129/75; PULSE 111; RESP 16; RESP 98; TEMP 36.7
== END 2025-01-12 06:16 | disposition home or self-care (01) ==
LOC: S4S1 13:05 → S4SX 13:06
PROVIDERS: Referring Provider Obstetrics & Gynecology; Visit Provider Obstetrics & Gynecology
DX: Z34.90 Encounter for supervision of normal pregnancy, unspecified, unspecified trimester (principal); Z3A.00 Weeks of gestation of pregnancy not specified
CPT/HCPCS: 59025

== ENCOUNTER 2025-01-14 12:40 | Outpatient (CLI) | payer MEDICAID, SELFPAY ==
[2025-01-14] VITALS (8 sets, daily range): BP systolic 114; BP diastolic 65; PULSE 86–99; RESP 20–100; TEMP 36.7; O2SAT 97–100; BMI 39.1
== END 2025-01-14 13:28 | disposition home or self-care (01) ==
LOC: S4SX 13:20 → CNST 13:32
PROVIDERS: Referring Provider Obstetrics & Gynecology; Visit Provider Obstetrics & Gynecology
DX: Z34.83 Encounter for supervision of other normal pregnancy, third trimester (principal); Z36.9 Encounter for antenatal screening, unspecified; Z3A.35 35 weeks gestation of pregnancy
CPT/HCPCS: 59025

== ENCOUNTER 2025-01-17 13:04 | Outpatient (AMB) | payer MEDICAID, SELFPAY ==
[2025-01-17 13:13] VITALS: BP 117/77; PULSE 98; RESP 18; TEMP 36.2; O2SAT 972
--- NOTE | 2025-01-17 13:13 | OBCLNT_ITS ---
Vital Signs 01/17/25 13:13 Weight 86.863 kg Weight Measurement Method Standing Scale BP 117/77 Blood Pressure Source Automatic Cuff Blood Pressure Location Left Upper Arm Position Sitting Respiration 18 Pulse 98 Pulse Source Monitor Temp 97.2 F Temp Source Oral Pulse Oximetry (%) 972 H Oxygen Delivery Method Room Air Allergies/Home Meds Allergies & Medications Allergies No Known Allergies Allergy (Verified 01/17/25 13:14) Medication Reconciliation vits no.124-ferrous fum 27 mg iron-folic acid 800 mcg tablet ( Vitamin) 1 tab PO QDAY 12/11/22 [History Confirmed 01/17/25] blood sugar diagnostic (Blood Glucose Test strips) #50 ea 11/22/24 [Rx Confirmed 01/17/25] blood-glucose meter #1 ea 11/22/24 [Rx Confirmed 01/17/25] lancets #100 ea 11/22/24 [Rx Confirmed 01/17/25] Immunizations Immunizations Flu Vaccine in the Last 12 Months: No Flu Vaccine Exclusion Criteria: No Exclusion Criteria Care OB Visit Log OB Flowsheet Initial Weight: Not Recorded Date -?-?-?-?-?-?-?-?-?-?-?-?- EGA Weight BP Alb Glu CTX Pres Fundal ht FHR Mov Dilation Station Effacem ent Hx Notes Visit Note 07/07/24 -?-?-?-?-?-?-?-?-?-?-?-?- 7w 6d 88.451 kg 109/71 absent 8.0 28 yo for OBI, denies sab complaints, no complaint of N/v. no bleeding. lmp 05/13/24. menses q month x 5 days. EDC 02/18/25. happy about . history of GDM last . was uncomplicated. PLAN: OB panel,1hr gtt and A1c, schedule sono for viability, continue PNV, SAB precaution. rtc 4 week 07/28/24 -?-?-?-?-?-?-?-?-?-?-?-?- 10w 6d 86.863 kg 109/71 absent unknown 10 154 absent increased nausea, no SAB complaints sched anatomy sc an with MFM, NIPT and carrier screen today, sab precaution, increase fluid, RTC 4 wk obc 08/30/24 -?-?-?-?-?-?-?-?-?-?-?-?- 15w 4d 84.992 kg 111/73 absent unknown 15 154 active light fm, denies SAB complaints, N/V improved AFP tod hanna, mfm on 09/30/24, sab precaution, fluid. rtc 4 week 09/27/24 -?-?-?-?-?-?-?-?-?-?-?-?- 19w 4d 85.049 kg 112/72 absent unknown 19 145 active headache, BP normal. c/u flu s/s, fetus active. no VB,leaking,uc mfm on 09/30, discuss PTL precaution, increase fluid, in crease protein, comfort measure for URI. discuss danger s/s. rtc 4 week 10/25/24 -?-?-?-?-?-?-?-?-?-?-?-?- 23w 4d 85.275 kg 117/73 absent unknown 23 145 active Fetus active. Complains of vaginal itching a week ago but nothing now. Normal discharge is normal. Reports movement. Denies leaking, bleeding, contractions. Patient has a follow-up ultrasound November 23 with [facility]. No other complaints Third trimester labs were ordered. Keep appointment with [facility] on the first. Discussed labor precautions. Increase fluids. I discussed diet and diet. Return in 4 weeks OB check 11/22/24 -?-?-?-?-?-?-?-?-?-?-?-?- 27w 4d 85.786 kg 107/71 absent unknown 27 145 active Fetus active. Denies contractions, leaking, bleeding. Patient has an appointment with [facility] November 23 Keep appointment with [facility] November 23. Discussed GDM diet. Patient to test 4 times a day. I ordered meter and lancets and test strips. Antepartum testing at 32 weeks. Patient had GDM at her last so she remembers how to monitor and log sugars and remembers diet. Discussed labor precautions. Return in 3 weeks for Tdap and OB check 12/13/24 -?-?-?-?-?-?-?-?-?-?-?-?- 30w 4d 85.899 kg 110/71 absent unknown 30 145 active Fetus active. Denies leaking, bleeding, contractions. Patient reports good compliance with diet. She states her sugars are at goal at least 95% of the time. Fastings being under 90. tdap today. Carlos islas NST BPP to start at 32 weeks. Patient has a follow-up MFM December 28. Discussed labor precautions. Continue to monitor sugars 4 times a day. And continue GDM diet. Return in 2 weeks OB 12/27/24 -?-?-?-?-?-?-?-?-?-?-?-?- 32w 4d 86.296 kg 106/67 absent unknown 32 146 active Fetus active. Denies leaking, bleeding, contractions. Patient has been compliant with GDM diet. And also monitoring 4 times a day her blood sugars. Sugars have been at goal 95% of the time. She will start weekly NST BPP today Follow-up with MFM for growth scan in a couple weeks. Continue to monitor blood sugars 4 times a day. Continue with regular activity throughout the day. And start NST BPP weekly. Kick count twice a day and return in 2 weeks OB check 01/17/25 -?-?-?-?-?-?-?-?-?-?-?-?- 35w 4d 86.863 kg 117/77 absent cephalic 35 146 active Reports movement. Denies leaking leaking today denies bleeding or contractions. Patient had gone into labor and delivery on the weekend for possible ruptured membranes. No leaking now. Reports blood sugars are within goal 95% of the time. Patient is walking. Compliant with weekly NST BPP. Patient had an JOHNNY of December 11 since then her JOHNNY's have been between 7 and 10 Reports movement. Den ies leaking leaking today denies bleeding or contractions. Patient had gone into labor and delivery on the weekend for possible ruptured membranes. No leaking now. Reports blood sugars are within goal 95% of the time. Patient is walking. Compliant with weekly NST BPP. Patient had an JOHNNY of December 11 since then her JOHNNY's have been between 7 and 10. The patient is concerned that with her last she had a vacuum delivery for distress. She sustained a midline laceration. And also a right labial tear that extended into the vaginal floor. Patient did not have 1/4 degree. Patient has questions that she should have a primary based on that tear. She was told by a nurse that if she had 1/4 degree she should have a C6. The patient told me she would like to have a vaginal I addressed all concerns. We discussed the details of her . Patient relayed to me that it was a vacuum delivery after pushing for 20 minutes. And that she did not tear through the rectum. And that she would like to have a vaginal . There is no or in the documentation that patient had 1/4 degree. She did have a mediolateral laceration and a right labial tear. I did GBS today. I sent patient to labor and delivery for her NST BPP. She will continue to monitor sugars 4 times a day. And continue to do kick count twice a day. To walk 40 minutes a day. Patient will see [facility] to discuss options. And induction was scheduled for February 10. Return in a week OB check NASRA Calculator Estimated Delivery Date Method Current WG Current Estimate 02/17/25 LMP (Certain) 35w 4d Other Estimates 02/17/25 Ultrasound #1 35w 4d 02/17/25 Ultrasound #2 35w 4d 02/17/25 Manual 35w 4d final nasra: 01/24 08/17, EFW: 16% Notes Visit Date: 11/22/24 Last Updated by: Arabella Montes CNM 11/22: 1 hr gtt: 199/GDM. rpr:nr, A1: 5.4 Visit Date: 10/25/24 Last Updated by: Arabella Montes CNM NIPT/carier screen- Visit Date: 09/27/24 Last Updated by: Arabella Montes CNM 09/27: AFP- Visit Date: 07/28/24 Last Updated by: Arabella Montes CNM O+,ABS-, RPR::NR, RUB IMM, HBSAG-,HIV-, HC-, GC/CT- Visit Date: 07/07/24 Last Updated by: Arabella Montes CNM 28 yo . LMP 05/13/24. EDC 02/18/25 Office Procedures OBC Clinic LOC & Office Proc's Nursing/Assessment Patient Status: Established Patient OB Clinic Nursing Assessment: Medication Reconciliation, Update PMH in EMR and Vital Signs OB Clinic Coordination of Care: Consent,records obtained, informed consent, Education Simp Pt/Fam, Lab and Imaging orders, Results/Orders obtained and Staff clarify orders Special Needs: Heart tones Miscellaneous Interventions: Pelvic Comp w/OB cult Established Patient Charge Established Patient Point Assignment: 125 Established Patient Point Charge: EP Level 4 (120-155) Assessment & Plan Diagnosis / Problem List (1) Encounter for supervision of high risk in third trimester, antepartum: Status: Acute (2) Diet controlled gestational diabetes mellitus (GDM) in second trimester: Status: Acute Plan Discussed labor precautions. Kick count twice a day. Continue weekly NST BPP. Patient continue to monitor sugars 4 times a day. Continue GDM diet. I scheduled patient with OB to discuss options. Patient had concerns about her previous delivery and whether that made her an increased risk for primary C- section. Return in a week OB check Additional Plan Follow Up: 1 Week (obc)
== END 2025-01-17 13:25 | disposition home or self-care (01) ==
PROVIDERS: Supervising Provider Advanced Practice Midwife; Visit Provider Advanced Practice Midwife
DX: O09.893 Supervision of other high risk pregnancies, third trimester (principal); O24.410 Gestational diabetes mellitus in pregnancy, diet controlled; Z87.59 Personal history of other complications of pregnancy, childbirth and the puerperium; Z36.85 Encounter for antenatal screening for Streptococcus B; Z3A.35 35 weeks gestation of pregnancy
CPT/HCPCS: 99214; G0463

== ENCOUNTER 2025-01-17 13:53 | Outpatient (RCR) | payer MEDICAID, SELFPAY ==
--- NOTE | 2024-12-27 15:54 | XR_ITS ---
Examination: Biophysical profile, ultrasound Date and time of exam: 12/27/2024, 3:53 p.m. INDICATION: Weekly NST/BPP due to GDM COMPARISON: None pertinent of this . Technique: Multiple transabdominal sonographic images of the pelvis abdomen obtained. Attention is directed to the breathing movement, gross body movement, amniotic fluid volume and tone. Findings: Single live IUP in cephalic position Total biophysical profile is 8 of 8. breathing movement is 2. Gross body movement is 2. tone is 2. Qualitative amniotic fluid volume is 2 JOHNNY = 6.8 cm. FHR = 147 bpm. Impression: Biophysical profile is 8 of 8.
[2024-12-27 16:31] VITALS: BP 119/73; PULSE 80; RESP 16; TEMP 37
--- NOTE | 2025-01-04 15:08 | XR_ITS ---
Examination: Biophysical profile, ultrasound Date and time of exam: January 04, 2025, 1454 hours INDICATIONS: Diagnosis gestational diabetes Technique: Multiple transabdominal sonographic images of the pelvis abdomen obtained. Attention is directed to the breathing movement, gross body movement, amniotic fluid volume and tone. Findings: Amniotic fluid index 7.0 cm Total biophysical profile is 8 of 8. breathing movement is 2. Gross body movement is 2. tone is 2. Qualitative amniotic fluid volume is 2 Impression: Biophysical profile is 8 of 8.
[2025-01-04 15:41] VITALS: BP 102/63; PULSE 83; RESP 16; TEMP 36.8
--- NOTE | 2025-01-10 15:57 | XR_ITS ---
Examination: Biophysical profile, ultrasound Date and time of exam: January 10, 2025, 1537 hours INDICATION: Diagnosis gestational diabetes Technique: Multiple transabdominal sonographic images of the pelvis abdomen obtained. Attention is directed to the breathing movement, gross body movement, amniotic fluid volume and tone. Findings: Amniotic fluid index 10.1 cm Total biophysical profile is 8 of 8. breathing movement is 2. Gross body movement is 2. tone is 2. Qualitative amniotic fluid volume is 2 Impression: Biophysical profile is 8 of 8.
[2025-01-10 16:22] VITALS: BP 112/65; PULSE 85; RESP 18; TEMP 36.6
--- NOTE | 2025-01-17 14:01 | XR_ITS ---
Examination: Biophysical profile, ultrasound Date and time of exam: January 17, 2025, 1412 hours INDICATIONS: Diagnosis gestational diabetes Technique: Multiple transabdominal sonographic images of the pelvis abdomen obtained. Attention is directed to the breathing movement, gross body movement, amniotic fluid volume and tone. Findings: Amniotic fluid index 2.6 cm Total biophysical profile is 6 of 8. breathing movement is 2. Gross body movement is 2. tone is 2. Qualitative amniotic fluid volume is 0 Impression: Biophysical profile is 6 of 8.
[2025-01-17 14:53] VITALS: BP 120/68; PULSE 95; RESP 18; TEMP 36.7
[2025-01-17 15:18] VITALS: BP 120/68; PULSE 95; RESP 18; TEMP 36.7
== END 2025-01-17 23:59 | disposition home or self-care (01) ==
LOC: S4S1 13:53
PROVIDERS: Referring Provider Advanced Practice Midwife; Visit Provider Advanced Practice Midwife
DX: O24.410 Gestational diabetes mellitus in pregnancy, diet controlled (principal); O09.93 Supervision of high risk pregnancy, unspecified, third trimester; Z3A.35 35 weeks gestation of pregnancy
CPT/HCPCS: 59025; 76819

== ENCOUNTER 2025-01-17 15:19 | Inpatient (IN) | payer MEDICAID, SELFPAY ==
[2025-01-17] VITALS (91 sets, daily range): BP systolic 104–130; BP diastolic 55–66; PULSE 89–111; RESP 16–97; TEMP 36.7–37; O2SAT 94–100; BMI 38.5
--- NOTE | 2025-01-17 15:25 | XR_ITS ---
Examination: Complete OB ultrasound greater than 14 weeks Date and time of exam: January 17, 2025, 1809 hours INDICATIONS: Labor induction, low JOHNNY on biophysical study today Findings: Viable intrauterine single fetus with single amniotic sac presentation cephalic Cardiac motion 147 bpm Placenta posterior grade 2 Medical cord insertion 3 vessel seen Amniotic fluid index 4.7 cm Cervix 2.9 cm Ovaries obscured by bowel gas. Composite estimated gestational age based on BPD, head circumference, abdominal circumference, femur length is 33 weeks 1 day Estimated weight 2100.7 g. Survey of intracranial anatomy, spinal anatomy, abdominal anatomy, four-chamber heart performed with no abnormalities identified. Impression: Viable intrauterine gestation cephalic presentation.
--- NOTE | 2025-01-17 15:35 | ESHP_ITS ---
Documentation for date of: 01/17/25 OB Labor/Induct. HPI History of Present Illness Chief complaint: Anhydramnios : 2 Para: 1 Term pregnancies: 1 pregnancies: 0 Living children: 1 History of Abortions: Spontaneous and Elective: 0 History of Vaginal deliveries: 1 History of sections: No History of : No Date of last menstrual period: 05/13/24 NASRA: 02/17/25 Gestational Age (weeks): 35 Gestational Age (days): 4 Gestational age based on last menstrual period: 35 History of present illness: Esperanza is a 2 para 1 at 35 weeks and 4 days who presented to her scheduled nonstress test appointment and was incidentally noted to have 0 JOHNNY. I proceeded to scan the patient by myself on the bedside and there is no amniotic fluid around the fetus. Patient denies any contractions, vaginal bleeding and reports adequate movements. She does endorse that she has visited labor and delivery triage a couple of times recently with complaints of leakage of fluid but every time her evaluation has been negative for rupture of membranes. Her last ultrasound about a week ago did reveal a low JOHNNY of 4.8. Patient receives care at the [facility] clinic with WILL Montes. Current is significant for gestational diabetes with abnormal 1 hour glucose tolerance that was elevated to more than 190. She is also mentioning that her previous delivery was a vacuum-assisted delivery with multiple lacerations because of which she had a lot of pain during her recovery. Initially patient had raised the question about having a primary due to her previous lacerations. However at the time of admission we reviewed her delivery record and it appears that she had a vacuum- assisted delivery with a right mediolateral episiotomy and other superficial first-degree tears and not 1/4 degree laceration as she believed. After detailed consideration of the advantages disadvantages of vaginal versus primary and the fact that this time she is with a smaller fetus patient elected to proceed with induction with the intention of having a vaginal delivery unless otherwise indicated. Past Medical History Surgical History SURGICAL: Negative Section Meds Home Medications and Allergies Home Medications ?Medication ?Instructions ?Recorded ?Confirmed ?Type vits no.124-ferrous fum 1 tab PO QDAY 3 01/17/25 History 27 mg iron-folic acid 800 mcg tablet ( Vitamin) Allergies Allergy/AdvReac Type Severity Reaction Status Date / Time No Known Allergies Allergy Verified 01/17/25 16:20 OB Exam Constitutional Constitutional: no acute distress Routine HEENT Exam Head: Present normocephalic and atraumatic Eye: Present EOMI and PERRL ENT: Present mucous membranes moist Routine Neck Exam Neck: Present supple and trachea midline Routine Cardiovascular Exam Cardiovascular: Present RRR Routine Abdominal Exam Abdominal: Present soft and normoactive bowel sounds Detailed Labor and Delivery Exam Dilation (cm): 1 Effacement (%): 50 Cervix position: mid station: -4 Consistency: firm Presentation: Vertex Routine Extremities Exam Extremities: Present full ROM Routine Skin Exam Skin: Present intact, dry and warm Routine Neurological Exam Neurological: Present alert, oriented X3 and CN II-XII intact Routine Psychiatric Exam Psychiatric: Present normal affect and normal thought process OB Results Labs 01/17/25 15:55 OB Assessment & Plan Assessment and Plan (1) Anhydramnios in third trimester: Status: Acute Assessment and plan: 29-year-old 2 para 1 at 35 weeks and 4 days with complete anhydramnios Admit to inpatient status for induction of labor IV access LR at 125 cc/h labs to include CBC type and screen RPR Betamethasone No. 1 given and #2 to be given early at 9 AM tomorrow Cervical ripening with dinoprostone Continuous maternal monitoring Pending complete ultrasound for estimated weight GBS prophylaxis due to unknown GBS status (2) Gestational diabetes, diet controlled: Status: Acute
[2025-01-17 16:12] LABS: ROM Kit Exp Date# 04/11/28; ROM Kit Lot # 58106258; ROM Swab Mixed By: SAUCT; Swb Mxed in Solvent 1 min? Yes
[2025-01-17 16:14] LABS: Rupture of Fetal Membranes Negative (Negative)
[2025-01-17 16:16] LABS: Basophils # (Auto) 0.0 Thou/mm3 (0.0-0.2); Basophils % (Auto) 0 % (0-2.5); Eosinophils # (Auto) 0.1 Thou/mm3 (0.0-0.5); Eosinophils % (Auto) 1 % (0-10); Hematocrit 44.0 % (36.0-46.0); Hemoglobin 15.5 g/dL (12.0-16.0); Immature Granulocytes Auto 0.06 Thou/mm3 (0.00-0.00); Lymphocytes # (Auto) 3.1 Thou/mm3 (1.0-4.8); Lymphocytes % (Auto) 24 % (10-50); Mean Corpuscular HGB Conc 35.2 g/dl (31.0-37.0); Mean Corpuscular Hemoglobin 29.6 pg (25.0-35.0); Mean Corpuscular Volume 84 fL (80-100); Monocytes # (Auto) 1.0 Thou/mm3 (0.0-0.8); Monocytes % (Auto) 8 % (0-12); Neutrophils # (Auto) 8.5 Thou/mm3 (1.8-7.7); Neutrophils % (Auto) 67 % (37-80); Nucleated Red Blood Cell # 0.00 Thou/mm3 (0.00-0.00); Nucleated Red Blood Cell % 0 /100 WBC (0); Platelet Count 229 Thou/mm3 (140-440); RDW Standard Deviation 40.8 fL (36.4-46.3); Red Blood Count 5.23 Miln/mm3 (4.00-5.20); White Blood Count 12.8 Thou/mm3 (3.6-11.0)
[2025-01-17] MEDS: RINGERS LACTATED 1000 ML 1,000 ML 100 ML IV ×2 (16:41→22:26)
[2025-01-17] MEDS: BETAMET ACET/BETAMET NA PH (Celestone) 6 MG/ML VIAL 12 MG IM (16:41)
[2025-01-17] MEDS: RINGERS LACTATED 500 ML 500 ML 999 ML IV (16:42)
[2025-01-17] MEDS: Ampicillin Inj 2,000 MG in SODIUM CHLORIDE 0.9% (POP) 100 ML 200 MG IV (17:08)
[2025-01-17 17:25] LABS: Syphilis Nonreactive (Nonreactive)
[2025-01-17] MEDS: Ampicillin Inj 1,000 MG in SODIUM CHLORIDE 0.9% (Popper) 50 ML 100 MG IV (21:00)
[2025-01-18] VITALS (92 sets, daily range): BP systolic 81–119; BP diastolic 50–81; PULSE 86–129; RESP 14–23; TEMP 36.6–37.2; O2SAT 91–100
[2025-01-18] MEDS: Ampicillin Inj 1,000 MG in SODIUM CHLORIDE 0.9% (Popper) 50 ML 100 MG IV ×2 (00:42→04:55)
[2025-01-18] MEDS: FAMOTIDINE INJ 10 MG/ML VIAL 2 ML 20 MG IV (06:03)
[2025-01-18] MEDS: CITRIC ACID/SODIUM CITR 15 ML UDC (BICITRA) 30 ML PO (06:03)
[2025-01-18] MEDS: ceFAZolin/D5W 2 GM IV 2 GM/100 ML BAG IV (06:03)
--- NOTE | 2025-01-18 06:53 | PD.GYNPROC ---
Operative Note - MATERIAL HANDLING TECHNICIAN Procedure Date of procedure: 01/18/25 Procedure Performed: STAT primary low transverse Indication: 29yo @35w4d being induced for anhydramnios as 35w3d Cat 2 trending to Cat 3 FHR tracing Post-Op diagnosis: Same Anesthesia type: Spinal Procedure description: Informed consent was obtained and the patient was taken to the operating room.? Identity was confirmed by double identifiers and she was placed on the operating table.? Spinal anesthesia was administered and she was positioned in the supine position.? The abdomen and perineum were prepped in the usual sterile fashion and a Cohen catheter was placed to continuous drainage.? Sterile drapes were applied.? The incision site was tested for adequacy of anesthesia.? A Pfannenstiel skin incision was made with a scalpel and carried to the subcutaneous fat up to the rectus fascia.? The rectus fascia was incised on either side of the midline and the incisions were extended bilaterally.? The fascia was gently dissected off the ventral surface of the rectus muscle both superiorly and inferiorly.? The rectus bellies were gently in the midline and the peritoneum was identified and entered bluntly using the surgeon's finger.? The peritoneal opening was now stretched to create an adequate opening for access to the uterus.? Richard O-ring retractor was placed for adequate visualization.? The anterior surface of the uterus was palpated.? The bladder reflection was identified and a Nichole Staples low transverse uterine incision was made in the lower uterine segment taking care to avoid the bladder.? Uterine entry was accomplished bluntly and the opening was stretched to create adequate room.? The amniotic membranes were now ruptured and clear amniotic fluid was released.? The fetus was noted to be in the vertex position.? The head was gently elevated out of the maternal pelvis and the rest of the shoulders and body were delivered by gentle fundal pressure.? Umbilical cord was doubly clamped, divided and the infant was handed over to the waiting team.? Cord gas samples were obtained.? The placenta was delivered by gentle traction on the umbilical cord.? The interior of the uterus was now thoroughly cleaned of all blood and debris and membranes.? The hysterotomy angles were grasped by a pair of Allis clamps and the hysterotomy was closed using 1 Monocryl suture in 2 layers.? The first layer was used to approximate the muscle in a running locked fashion, the second layer was used to approximate the thickness of the myometrium?and uterine serosa in an imbricated manner.? Once the repair was completed the hysterotomy was inspected and noted to be adequately hemostatic.?? The hysterotomy was once again inspected and hemostasis was noted to be satisfactory.? The Richard retractor was now removed.? The peritoneal edges were re approximated.? The rectus muscles were re approximated.? The rectus fascia was now repaired using 0 Vicryl suture in a running fashion.? The subcutaneous layer was now copiously irrigated using warm normal saline.? All bleeding points were cauterized using the Bovie.? The subcutaneous fat was closed using 3-0 Vicryl.? The skin was closed using 4-0 Monocryl in a subcuticular fashion.? The skin was cleaned and a sterile dressing was applied.? The patient was now undraped, the abdomen and back were thoroughly cleaned and she was transferred to the recovery room in a stable and awake condition.? The patient tolerated the entire procedure well.? No complications were encountered.? All instrument, sponge and lap counts were correct x2. Specimen: none Estimated blood loss (ml): 750 Complications: none Diagnosis Discharge Diagnosis (1) Gestational diabetes, diet controlled: Status: Acute (2) Anhydramnios in third trimester: Status: Acute (3) delivery delivered: Status: Acute Problem List Completed Was Problem List Reviewed/Reconciled?: Yes
--- NOTE | 2025-01-18 06:56 | OBDSUM_ITS ---
Data (Packer) Data Hx Section: No : 2 Term: 1 : 0 Livin Abortions: Spontaneous & Theraputic: 0 Delivery Data (Packer) Labor Data Initiation of labor: Induction Induction/Augmentation Agent: Cervidil ROM date: 01/18/25 ROM time: 06:21 Amniotic membrane rupture type: Artificial Amniotic fluid description: Clear Delivery Data Onset of labor date: 01/18/25 Onset of labor time: 06:21 Complete dilation date: 01/18/25 Complete dilation time: 06:21 [place] delivery date: 01/18/25 delivery time: 06:21 Placenta delivery date: 01/18/25 Placenta delivery time: 06:22 Stage 1 total time: Labor - Stage 1 Duration 0 minutes Delivered by: Vicente Reyes (Referring) Delivery nurse: rafat sims rn [place] nurse: Nancy VAN RN , Shahbaz GARCIA RN Welfare Investigator at delivery: Yes (XU) Support person(s) at delivery: FATHER OF BABY Other staff at delivery: Samuel GARCES RN Delivery Method Delivery method: Low Transverse Presentation: Vertex Anesthesia Type Anesthesia Type: Spinal Anesthesia type: Spinal Placenta Placenta delivery description: Manual Removal Cord blood sent to lab: Yes cord blood collection: Cord Blood Type Episiotomy Episiotomy description: None Umbilical Cord cord description: 3 Vessels Data (Packer) Data order: 1 [place]'s gender: Female Identification band number: [id number] weight (gms): 2060 g Weight (pounds): 4 lbs and 8.7 ozs 1 minute: 8 5 minutes: 9
--- NOTE | 2025-01-18 07:00 | PC.NURSE ---
Verbal order received from Arsenio Reyes ASSAULT AMPHIBIOUS VEHICLE OFFICER to give pt 1000ml LR IV bolus x1 now.
--- NOTE | 2025-01-18 07:00 | PC.NURSE ---
#1 bag of N/S pitocin IV started in OB OR by Arsenio Reyes MEDICAL ASSISTING INSTRUCTOR
[2025-01-18] MEDS: RINGERS LACTATED 1000 ML 1,000 ML 999 ML IV (07:10)
[2025-01-18] MEDS: KETOROLAC INJ 30 MG/ML VIAL IVP ×2 (11:26→17:58)
[2025-01-18] MEDS: OXYTOCIN in NS 20 units 20 UNIT/1,000 ML BAG 125 UNIT IV (13:18)
[2025-01-18] MEDS: ONDANSETRON INJ 2 MG/ML INJ 2 ML 4 MG IVP (13:29)
[2025-01-19 03:56] VITALS: BP 101/62; PULSE 83; RESP 18; TEMP 36.9; O2SAT 96
[2025-01-19 06:02] LABS: Basophils # (Auto) 0.0 Thou/mm3 (0.0-0.2); Basophils % (Auto) 0 % (0-2.5); Eosinophils # (Auto) 0.1 Thou/mm3 (0.0-0.5); Eosinophils % (Auto) 1 % (0-10); Hematocrit 31.9 % (36.0-46.0); Hemoglobin 10.7 g/dL (12.0-16.0); Immature Granulocytes Auto 0.06 Thou/mm3 (0.00-0.00); Lymphocytes # (Auto) 3.5 Thou/mm3 (1.0-4.8); Lymphocytes % (Auto) 23 % (10-50); Mean Corpuscular HGB Conc 33.5 g/dl (31.0-37.0); Mean Corpuscular Hemoglobin 29.1 pg (25.0-35.0); Mean Corpuscular Volume 87 fL (80-100); Monocytes # (Auto) 1.3 Thou/mm3 (0.0-0.8); Monocytes % (Auto) 8 % (0-12); Neutrophils # (Auto) 10.5 Thou/mm3 (1.8-7.7); Neutrophils % (Auto) 68 % (37-80); Nucleated Red Blood Cell # 0.00 Thou/mm3 (0.00-0.00); Nucleated Red Blood Cell % 0 /100 WBC (0); Platelet Count 184 Thou/mm3 (140-440); RDW Standard Deviation 42.5 fL (36.4-46.3); Red Blood Count 3.68 Miln/mm3 (4.00-5.20); White Blood Count 15.6 Thou/mm3 (3.6-11.0)
[2025-01-19 07:50] VITALS: BP 105/70; PULSE 82; RESP 16; TEMP 36.9; O2SAT 98
[2025-01-19] MEDS: DOCUSATE SOD 100 MG CAPSULE PO (08:06)
[2025-01-19] MEDS: IBUPROFEN TAB 400 MG TABLET 800 MG PO ×2 (08:06→17:48)
--- NOTE | 2025-01-19 08:28 | PD.LDPPPRG ---
Subjective Subjective Interval history: Delivery type: Patient doing well this morning. No acute complaints. Ambulating, tolerating p.o., and voiding without difficulty. HTN/Pre-E screen negative: No CP, SOB, SMITH, visual changes, RUQ pain. : Yes Lochia: diminishing Bowel: Flatus + / BM + UOP: Voiding freely Exam Vital Signs Temp Pulse Resp BP Pulse Ox O2 Del Method 98.4 F 82 16 105/70 98 Room Air 01/19/25 07:50 01/19/25 07:50 01/19/25 07:50 01/19/25 07:50 01/19/25 07:50 01/19/25 07:50 Constitutional Constitutional: no acute distress Routine HEENT Exam Head: Present normocephalic and atraumatic Eye: Present EOMI and PERRL ENT: Present mucous membranes moist Routine Neck Exam Neck: Present supple and trachea midline Routine Respiratory Exam Respiratory: Present chest non-tender, lungs clear, normal breath sounds and no resp distress Routine Cardiovascular Exam Cardiovascular: Present RRR Routine Abdominal Exam Abdominal: Present soft and normoactive bowel sounds Routine Extremities Exam Extremities: Present full ROM Routine Skin Exam Skin: Present intact, dry and warm Routine Neurological Exam Neurological: Present alert, oriented X3 and CN II-XII intact Routine Psychiatric Exam Psychiatric: Present normal affect and normal thought process Objective Labs 01/19/25 05:15 Labs: Laboratory Results - last 24 hr 01/19/25 05:15 WBC 15.6 H RBC 3.68 L Hgb 10.7 L D Hct 31.9 L D MCV 87 MCH 29.1 MCHC 33.5 RDW Std Deviation 42.5 Plt Count 184 D Neut % (Auto) 68 Lymph % (Auto) 23 [place] % (Auto) 8 Eos % (Auto) 1 Baso % (Auto) 0 Neut # (Auto) 10.5 H Lymph # (Auto) 3.5 [place] # (Auto) 1.3 H Eos # (Auto) 0.1 Baso # (Auto) 0.0 Immature Gran # (Auto) 0.06 H Absolute Nucleated RBC 0.00 Immature Gran % 0 Nucleated RBC % 0 Assessment & Plan Problem List (1) Gestational diabetes, diet controlled: Status: Acute (2) Anhydramnios in third trimester: Status: Acute (3) delivery delivered: Status: Acute Assessment and plan: 1. Continue routine /post-op care 2. Labs reviewed, cbc appropriate 3. Remove dressing/Cohen 4. Encourage to ambulate, shower 5. Encourage PO intake, breast feeding Time Spent With Patient Time: Total time spent is greater than 50% in coordination of care (as documented) at patient's floor/unit and/or counseling patient:
[2025-01-19 13:54] VITALS: BP 95/62; PULSE 93; RESP 16; TEMP 37; O2SAT 98
[2025-01-19 20:00] VITALS: BP 112/66; PULSE 98; RESP 18; TEMP 36.8; O2SAT 98
[2025-01-20 03:30] VITALS: BP 96/63; PULSE 90; RESP 15; TEMP 36.9; O2SAT 97
[2025-01-20] MEDS: IBUPROFEN TAB 400 MG TABLET 800 MG PO (03:38)
--- NOTE | 2025-01-20 07:49 | PD.LDPPPRG ---
Subjective Subjective Interval history: Delivery type: Patient doing well this morning. No acute complaints. Ambulating, tolerating p.o., and voiding without difficulty. HTN/Pre-E screen negative: No CP, SOB, SMITH, visual changes, RUQ pain. : Yes Lochia: diminishing Bowel: Flatus + / BM + UOP: Voiding freely Exam Vital Signs Temp Pulse Resp BP Pulse Ox O2 Del Method 98.4 F 90 15 96/63 97 Room Air 01/20/25 03:30 01/20/25 03:30 01/20/25 03:30 01/20/25 03:30 01/20/25 03:30 01/20/25 03:30 Constitutional Constitutional: no acute distress Routine HEENT Exam Head: Present normocephalic and atraumatic Eye: Present EOMI and PERRL ENT: Present mucous membranes moist Routine Neck Exam Neck: Present supple and trachea midline Routine Respiratory Exam Respiratory: Present chest non-tender, lungs clear, normal breath sounds and no resp distress Routine Cardiovascular Exam Cardiovascular: Present RRR Routine Abdominal Exam Abdominal: Present soft and normoactive bowel sounds Routine Extremities Exam Extremities: Present full ROM Routine Skin Exam Skin: Present intact, dry and warm Routine Neurological Exam Neurological: Present alert, oriented X3 and CN II-XII intact Routine Psychiatric Exam Psychiatric: Present normal affect and normal thought process Objective Labs 01/19/25 05:15 Assessment & Plan Problem List (1) Gestational diabetes, diet controlled: Status: Acute (2) Anhydramnios in third trimester: Status: Acute (3) delivery delivered: Status: Acute Assessment and plan: PPD/POD#2 1. Continue routine care 2. Transition to PO meds. 3. Encourage to ambulate/ breast-feed 4. Anticipate discharge home today. Time Spent With Patient Time: Total time spent is greater than 50% in coordination of care (as documented) at patient's floor/unit and/or counseling patient:
--- NOTE | 2025-01-20 07:51 | PD.LDDS ---
DS: Providers Provider Date of admission: 01/17/25 15:19 Primary care physician: Richard Skaggs MD Admitting Provider: Vicente Reyes MD Attending Provider on Admission: Vicente Reyes MD Consults: 01/18/25 08:02 Referral Routine Comment: Attending Provider on DC: Vicente Reyes MD Discharging Provider: Vicente Reyes MD DS: Diagnosis Discharge Diagnosis (1) delivery delivered: Status: Acute (2) Gestational diabetes, diet controlled: Status: Acute (3) Anhydramnios in third trimester: Status: Acute Problem List Completed Was Problem List Reviewed/Reconciled?: Yes Summary/Hosp Course Brief History: Esperanza is a 2 para 1 at 35 weeks and 4 days who presented to her scheduled nonstress test appointment and was incidentally noted to have 0 JOHNNY. I proceeded to scan the patient by myself on the bedside and there is no amniotic fluid around the fetus. Patient denies any contractions, vaginal bleeding and reports adequate movements. She does endorse that she has visited labor and delivery triage a couple of times recently with complaints of leakage of fluid but every time her evaluation has been negative for rupture of membranes. Her last ultrasound about a week ago did reveal a low JOHNNY of 4.8. Patient receives care at the [facility] clinic with WILL Montes. Current is significant for gestational diabetes with abnormal 1 hour glucose tolerance that was elevated to more than 190. She is also mentioning that her previous delivery was a vacuum-assisted delivery with multiple lacerations because of which she had a lot of pain during her recovery. Initially patient had raised the question about having a primary due to her previous lacerations. However at the time of admission we reviewed her delivery record and it appears that she had a vacuum-assisted delivery with a right mediolateral episiotomy and other superficial first-degree tears and not 1/4 degree laceration as she believed. After detailed consideration of the advantages disadvantages of vaginal versus primary and the fact that this time she is with a smaller fetus patient elected to proceed with induction with the intention of having a vaginal delivery unless otherwise indicated. Peripartum Data Delivery Method: Low Transverse Episiotomy Description: None Procedures: Procedures Operation Date: 01/18/25 06:08 Actual Procedure Side Surgeon p in OB Not Applicable Vicente Reyes MD Time Spent with Patient Time attestation: Total time spent providing and/or coordinating discharge services: Exam Vital Signs Temp Pulse Resp BP Pulse Ox O2 Del Method 98.4 F 90 15 96/63 97 Room Air 01/20/25 03:30 01/20/25 03:30 01/20/25 03:30 01/20/25 03:30 01/20/25 03:30 01/20/25 03:30 Discharge Plan Plan Patient Disposition: HOME (Self Care) Patient condition on transfer: Stable Prescriptions/Referrals Prescriptions/Med Rec: New hydrocodone-acetaminophen 5-325 mg tablet 1 tab PO Q6H MDD 4 PRN (Reason: pain) 5 Days Qty: 20 0RF docusate sodium [Stool Softener] 100 mg capsule 100 mg PO QDAY 30 Days Qty: 30 0RF ibuprofen 600 mg tablet 600 mg PO Q6H MDD 4 PRN (Reason: fever or pain) 10 Days Qty: 40 0RF Continued (DME) blood-glucose meter Kit See Rx Instructions .MEDSUPPLY Qty: 1 0RF Rx Instructions: As directed (DME) Blood Glucose Test Strip See Rx Instructions .MEDSUPPLY Qty: 50 2RF Rx Instructions: As directed (DME) lancets Misc See Rx Instructions .MEDSUPPLY Qty: 100 2RF Rx Instructions: As directed Vitamin 27 mg iron- 800 mcg Tablet 1 tab PO QDAY Referrals: Richard Skaggs MD [Primary Care Provider, Family Practice] Vicente Reyes MD [Physician, MANAGEMENT [employer]INEE MARKET[employer]] Patient/Caregiver Discharge Instructions Education Materials: After Delivery [place] Concerns, After a , C Section Dc Print Language: Faroese Stand Alone Forms: Sandy Award Info., Patient Portal Info Letter, DC from Surgery Discharge Order Discharge Orders: Discharge (Routine); Ordered 01/20/25 Ordered By: Vicente Reyes Planned Discharge Date 01/20/25
[2025-01-20 07:56] VITALS: BP 101/62; PULSE 90; RESP 16; TEMP 36.8; O2SAT 97
== END 2025-01-20 08:26 | disposition home or self-care (01) | DRG 540 ==
LOC: S4SX 01-18 06:08 → S4NX 01-18 06:18
PROVIDERS: Admitting Provider Obstetrics & Gynecology; PCP Family Medicine; Visit Provider Obstetrics & Gynecology
PROC: 10D00Z1 Extraction of Products of Conception, Low, Open Approach (ICD-10-PCS; CPT 59514; principal; 2025-01-18 06:15)
DX: O41.03X0 Oligohydramnios, third trimester, not applicable or unspecified (principal); O24.420 Gestational diabetes mellitus in childbirth, diet controlled; Z3A.35 35 weeks gestation of pregnancy; Z37.0 Single live birth; Z87.59 Personal history of other complications of pregnancy, childbirth and the puerperium
CPT/HCPCS: 36415; 76805; 84112; 85025; 86780; 86850; 86900; 86901; A4217; A4314; A4649; J0290; J0689; J0702; J1885; J2274; J2371; J2405; J2590; J3490; J7050; J7120; A9270; J2270

== ENCOUNTER 2025-01-31 10:59 | Outpatient (AMB) | payer MEDICAID, SELFPAY ==
[2025-01-31 11:13] VITALS: BP 117/78; PULSE 83; RESP 18; TEMP 36.6; O2SAT 98
--- NOTE | 2025-01-31 11:13 | AMBOBPPN_ITS ---
Vital Signs 01/31/25 11:13 Weight 81.76 kg Weight Measurement Method Standing Scale BP 117/78 Blood Pressure Source Automatic Cuff Blood Pressure Location Left Upper Arm Position Sitting Respiration 18 Pulse 83 Pulse Source Monitor Temp 97.8 F Temp Source Oral Pulse Oximetry (%) 98 Oxygen Delivery Method Room Air Allergies/Home Meds Allergies & Medications Allergies No Known Allergies Allergy (Verified 01/31/25 11:13) Medication Reconciliation vits no.124-ferrous fum 27 mg iron-folic acid 800 mcg tablet ( Vitamin) 1 tab PO QDAY 12/11/22 [History Confirmed 01/31/25] blood sugar diagnostic (Blood Glucose Test strips) #50 ea 11/22/24 [Rx Confirmed 01/31/25] blood-glucose meter #1 ea 11/22/24 [Rx Confirmed 01/31/25] lancets #100 ea 11/22/24 [Rx Confirmed 01/31/25] docusate sodium 100 mg capsule (Stool Softener) 100 mg PO QDAY 30 days #30 caps 01/20/25 [Rx Confirmed 01/31/25] Intake Visit Data Collection New Patient or Established: Established Patient (seen at [facility] within 3 years) Reason for Visit:: POSPARTUM Seen by Clinical Staff ONLY (RN/MA): No Hrbp Required: No Do You Feel Safe at Home: Yes Authorities Contacted: N/A PCP or OBGYN visit in last 3 months: Yes Date of Last PCP or OBGYN visit: 01/10/25 Hx Now: No Are you currently on any form of Control: No Pain Present Currently: No Pain Scale Used: Hinson-Esparza/Numerical Pain scale:: 0 Smoking Status Smoking Status: Never smoker Immunizations Flu Vaccine in the Last 12 Months: No Flu Vaccine Exclusion Criteria: No 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 Past Medical History: No Hx Neurological Disorders, No Hx Cardiac Disorders, No Hx Cancer, No Hx Blood Disorders, Yes Hx Anemia, No Hx Gastrointestinal Disorders, No Hx Renal Disease, No Hx Diabetes Mellitus Type 1 and No Hx Diabetes Mellitus Type 2 Questionnaires Covid-19 Vaccine Questionnaire Has patient been vacinated for Covid-19 Have you been vacinated for Covid-19: No Social History Living Situation History Lives With: Family Housing: Apartment Tobacco History Smoking Status: Never smoker Second Hand Smoke Exposure: No Alcohol History Alcohol Intake: Never Domestic Abuse History Do You Feel Safe at Home: Yes EPDS - PP Depression Screening [place] Pospartum Depression Screen I have been able to laugh and see the funny side of things: (0) As much as I always could I have looked forward with enjoyment to things: (0) As much as I ever did I have blamed myself unnecessarily when things went wrong: (0) No, never I have been anxious or worried for no good reason: (0) No, not at all I have felt scared or panicky for no very good reason: (0) No, not at all Things have been getting on top of me: (0) No, I have been coping as well as ever I have been so unhappy that I have had difficulty sleeping: (0) No, not at all I have felt sad or miserable: (0) No, not at all I have been so unhappy that I have been crying: (0) No, never The thought of harming myself has occurred to me: (0) Never Total Score: EPDS Score: Referral is indicated for score of 9 or more, suicidal, or if provider believes patient is depressed regardless of score.: 0 EPDS completed yes Care OB Visit Log OB Flowsheet Initial Weight: Not Recorded Date -?-?-?-?-?-?-?-?-?-?-?-?- EGA Weight BP Alb Glu CTX Pres Fundal ht FHR Mov Dilation Station Effacement Hx Notes Visit Note 07/07/24 -?-?-?-?-?-?-?-?-?-?-?-?- 7w 6d 88.451 kg 109/71 absent 8.0 28 yo for OBI, denies sab complaints, no complaint of N/v. no bleeding. lmp 05/13/24. menses q month x 5 days. EDC 02/18/25. happy about . history of GDM last . was uncomplicated. PLAN: OB panel,1hr gtt and A1c, schedule sono for viability, continue PNV, SAB precaution. rtc 4 week 07/28/24 -?-?-?-?-?-?-?-?-?-?-?-?- 10w 6d 86.863 kg 109/71 absent unknown 10 154 absent increased nausea, no SAB complaints sched anatomy sc an with MFM, NIPT and carrier screen today, sab precaution, increase fluid, RTC 4 wk obc 08/30/24 -?-?-?-?-?-?-?-?-?-?-?-?- 15w 4d 84.992 kg 111/73 absent unknown 15 154 active light fm, denies SAB complaints, N/V improved AFP tod ay, mfm on 09/30/24, sab precaution, fluid. rtc 4 week 09/27/24 -?-?-?-?-?-?-?-?-?-?-?-?- 19w 4d 85.049 kg 112/72 absent unknown 19 145 active headache, BP normal. c/u flu s/s, fetus active. no VB,leaking,uc mfm on 09/30, discuss PTL precaution, increase fluid, in crease protein, comfort measure for URI. discuss danger s/s. rtc 4 week 10/25/24 -?-?-?-?-?-?-?-?-?-?-?-?- 23w 4d 85.275 kg 117/73 absent unknown 23 145 active Fetus active. Complains of vaginal itching a week ago but nothing now. Normal discharge is normal. Reports movement. Denies leaking, bleeding, contractions. Patient has a follow-up ultrasound November 23 with [facility]. No other complaints Third trimester labs were ordered. Keep appointment with [facility] on the first. Discussed labor precautions. Increase fluids. I discussed diet and diet. Return in 4 weeks OB check 11/22/24 -?-?-?-?-?-?-?-?-?-?-?-?- 27w 4d 85.786 kg 107/71 absent unknown 27 145 active Fetus active. Denies contractions, leaking, bleeding. Patient has an appointment with [facility] November 23 Keep appointment with [facility] November 23. Discussed GDM diet. Patient to test 4 times a day. I ordered meter and lancets and test strips. Antepartum testing at 32 weeks. Patient had GDM at her last so she remembers how to monitor and log sugars and remembers diet. Discussed labor precautions. Return in 3 weeks for Tdap and OB check 12/13/24 -?-?-?-?-?-?-?-?-?-?-?-?- 30w 4d 85.899 kg 110/71 absent unknown 30 145 active Fetus active. Denies leaking, bleeding, contractions. Patient reports good compliance with diet. She states her sugars are at goal at least 95% of the time. Fastings being under 90. tdap today. Carlos islas NST BPP to start at 32 weeks. Patient has a follow-up MFM December 28. Discussed labor precautions. Continue to monitor sugars 4 times a day. And continue GDM diet. Return in 2 weeks OB 12/27/24 -?-?-?-?-?-?-?-?-?-?-?-?- 32w 4d 86.296 kg 106/67 absent unknown 32 146 active Fetus active. Denies leaking, bleeding, contractions. Patient has been compliant with GDM diet. And also monitoring 4 times a day her blood sugars. Sugars have been at goal 95% of the time. She will start weekly NST BPP today Follow-up with MFM for growth scan in a couple weeks. Continue to monitor blood sugars 4 times a day. Continue with regular activity throughout the day. And start NST BPP weekly. Kick count twice a day and return in 2 weeks OB check 01/17/25 -?-?-?-?-?-?-?-?-?-?-?-?- 35w 4d 86.863 kg 117/77 absent cephalic 35 146 active Reports movement. Denies leaking leaking today denies bleeding or contractions. Patient had gone into labor and delivery on the weekend for possible ruptured membranes. No leaking now. Reports blood sugars are within goal 95% of the time. Patient is walking. Compliant with weekly NST BPP. Patient had an JOHNNY of December 11 since then her JOHNNY's have been between 7 and 10 Reports movement. Den ies leaking leaking today denies bleeding or contractions. Patient had gone into labor and delivery on the weekend for possible ruptured membranes. No leaking now. Reports blood sugars are within goal 95% of the time. Patient is walking. Compliant with weekly NST BPP. Patient had an JOHNNY of December 11 since then her JOHNNY's have been between 7 and 10. The patient is concerned that with her last she had a vacuum delivery for distress. She sustained a midline laceration. And also a right labial tear that extended into the vaginal floor. Patient did not have 1/4 degree. Patient has questions that she should have a primary based on that tear. She was told by a nurse that if she had 1/4 degree she should have a C6. The patient told me she would like to have a vaginal I addressed all concerns. We discussed the details of her . Patient relayed to me that it was a vacuum delivery after pushing for 20 minutes. And that she did not tear through the rectum. And that she would like to have a vaginal . There is no or in the documentation that patient had 1/4 degree. She did have a mediolateral laceration and a right labial tear. I did GBS today. I sent patient to labor and delivery for her NST BPP. She will continue to monitor sugars 4 times a day. And continue to do kick count twice a day. To walk 40 minutes a day. 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 And induction was scheduled for February 10. Return in a week OB check NASRA Calculator Estimated Delivery Date Method Current WG Current Estimate 02/17/25 LMP (Certain) 37w 4d Other Estimates 02/17/25 Ultrasound #1 37w 4d 02/17/25 Ultrasound #2 37w 4d 02/17/25 Manual 37w 4d final nasra: 01/24 08/17, EFW: 16% Notes Visit Date: 11/22/24 Last Updated by: Arabella Montes CNM 11/22: 1 hr gtt: 199/GDM. rpr:nr, A1: 5.4 Visit Date: 10/25/24 Last Updated by: Arabella Montes CNM NIPT/carier screen- Visit Date: 09/27/24 Last Updated by: Arabella Montes CNM 8/5: AFP- Visit Date: 07/28/24 Last Updated by: Arabella Montes CNM O+,ABS-, RPR::NR, RUB IMM, HBSAG-,HIV-, HC-, GC/CT- Visit Date: 07/07/24 Last Updated by: Arabella Montes CNM 28 yo . LMP 05/13/24. EDC 02/18/25 HPI Interval History: Etelvina Scales presents for routine follow-up visit 15 days after primary section performed on January 18, 2025. She reports doing well overall with her recovery and is feeding her baby with both and bottle-feeding. The patient reports experiencing incisional pain, which she describes as ongoing but notes that it hurts. She is aware that the pain sensations she feels are from the stitches, which she describes as normal. The patient has been using the abdominal binder provided at the hospital as directed. She has a history of primary section on January 18, 2025. The patient is currently 15 days with good healing of incision. The patient has been taking ibuprofen as needed for pain. She has an obstetric history of G1 T1 L1. She delivered a female infant via primary section on January 18, 2025. ROS: Musculoskeletal: Positive for incisional pain. 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 Exam Narrative Physical exam: - Abdominal: incision site examined with tape/band-aid removed. Skin edges well-approximated and healing appropriately. General General Appearance: alert, in no apparent distress and healthy appearing Head Head exam: atraumatic Neck Neck exam: Present normal inspection and trachea midline Chest Chest inspection: Present normal inspection and symmetric chest wall rise External exam: Present normal external exam; Absent tenderness Neuro Neurological exam: Present oriented X3 Psych Psychiatric exam: Present normal affect and normal mood Office Procedures OBC Clinic LOC & Office Proc's Nursing/Assessment Patient Status: Established Patient OB Clinic Nursing Assessment: Medication Reconciliation, Update PMH in EMR and Vital Signs OB Clinic Coordination of Care: Consent,records obtained, informed consent, Education Simp Pt/Fam, Lab and Imaging orders, Results/Orders obtained and Staff clarify orders Established Patient Charge Established Patient Point Assignment: 80 Established Patient Point Charge: EP Level 3 (80-115) Assessment & Plan Diagnosis / Problem List (1) delivery delivered: Status: Acute (2) Gestational diabetes, diet controlled: Status: Acute (3) Anhydramnios in third trimester: Status: Acute Plan Status Post Section: - 15 days following primary section performed on January 18, 2025. - Incision examination reveals good healing with skin edges well-approximated. - Patient reports incisional pain and can feel sutures, which are normal findings at this postoperative timeframe. - No signs of infection or dehiscence noted on examination. Plan: - Remove adhesive dressing from incision site. - Continue incision care with washing during shower, allowing to air dry before dressing. - Continue ibuprofen for pain management. - Wear abdominal binder for one additional month, removing only for bathing and sleeping. - Avoid pressing on incision site to prevent inflammation. - Follow-up appointment in one month. - Disability paperwork assistance available through Stacey at [employer].
== END 2025-01-31 11:18 | disposition home or self-care (01) ==
LOC: HODSOBC 10:59
PROVIDERS: Supervising Provider Obstetrics & Gynecology; Visit Provider Obstetrics & Gynecology
DX: Z39.2 Encounter for routine postpartum follow-up (principal); O24.430 Gestational diabetes mellitus in the puerperium, diet controlled
CPT/HCPCS: 99213; G0463